=== PATIENT | female | born 1980 | race Caucasian/White ===

== ENCOUNTER 2016-08-21 19:10 | Emergency (ER) | payer OTHER ==
[2016-08-21] MEDS ORDERED: Aspirin Low Dose CHEW TAB* 81 MG PO ONE (19:42)
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
[2016-08-21 20:53] LABS: Hematocrit 35 % (35-47); Hemoglobin 11.6 g/dl (12.0-16.0); Mean Corpuscular HGB Conc 33 g/dl (31-36); Mean Corpuscular Hemoglobin 29 pg (27-31); Mean Corpuscular Volume 86 fL (80-97); Mean Platelet Volume 8 um3 (7.4-10.4); Red Cell Distribution Width 14 % (10.5-15); White Blood Count 9.3 10^3/ul (3.5-10.8)
[2016-08-21 21:08] LABS: Albumin 3.8 g/dL (3.2-5.2); BUN/Creatinine Ratio 9.3 (8-20); Calcium 8.5 mg/dL (8.6-10.3); EGFR African American 112.4 (>60); EGFR Non-African American 87.4 (>60); Globulin 2.4 g/dL (2-4); Potassium 3.3 mmol/L (3.5-5.0); Total Bilirubin 0.3 mg/dL (0.2-1.0); Total Protein 6.2 g/dL (6.4-8.9)
--- NOTE | 2016-08-21 22:04 | RAD ---
Indication: Chest pain. 2 views of the chest including dual energy PA views demonstrate no mediastinal shift. Heart is of normal size and configuration. Lung prince appear clear. No changes noted since May 08, 2014. IMPRESSION: No active cardiopulmonary disease is noted.
[2016-08-21 22:17] VITALS: BP 133/92
== END 2016-08-21 22:39 | disposition home or self-care (01) ==
LOC: ED 19:10
DX: R07.9 Chest pain, unspecified (principal); F17.210 Nicotine dependence, cigarettes, uncomplicated; F32.9 Major depressive disorder, single episode, unspecified; F41.0 Panic disorder [episodic paroxysmal anxiety]; Z88.0 Allergy status to penicillin; Z88.2 Allergy status to sulfonamides; B20 Human immunodeficiency virus [HIV] disease
CPT/HCPCS: 36415; 71020; 80053; 85025; 93005; 99282

== ENCOUNTER 2017-03-29 01:55 | Emergency (ER) | payer MEDICAID, OTHER ==
[2017-03-29] MEDS ORDERED: oxyCODONE/Acetamin 5/325 MG* TAB PO ONE (02:20)
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
[2017-03-29] MEDS ORDERED: Tetan/Diph/Pertus SYR(Tdap)* 0.5 ML SYR(BOOSTRIX) use SYR IM ONE (03:32)
[2017-03-29 03:55] VITALS: BP 104/70
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
== END 2017-03-29 03:55 | disposition home or self-care (01) ==
LOC: ED 01:55
DX: S09.90XA Unspecified injury of head, initial encounter (principal); S01.311A Laceration without foreign body of right ear, initial encounter; Y04.8XXA Assault by other bodily force, initial encounter; Y93.9 Activity, unspecified; Y92.9 Unspecified place or not applicable; Z23 Encounter for immunization; R51 Headache; B20 Human immunodeficiency virus [HIV] disease; F41.0 Panic disorder [episodic paroxysmal anxiety]; F32.9 Major depressive disorder, single episode, unspecified; Z88.0 Allergy status to penicillin; Z88.2 Allergy status to sulfonamides; F17.210 Nicotine dependence, cigarettes, uncomplicated
CPT/HCPCS: 12011; 70450; 90471; 90715; 99283; A9270-GY

== ENCOUNTER 2017-06-13 19:08 | Emergency (ER) | payer MEDICAID ==
[2017-06-13] MEDS ORDERED: Ketorolac INJ* 30 MG/ML 1 ML VIAL IV ONE (19:32)
[2017-06-13] MEDS ORDERED: Aspirin 81 mg CHEW TAB* 81 MG TAB.CHEW PO ONE (19:32)
[2017-06-13] MEDS ORDERED: Famotidine TAB* 20 MG PO ONE (19:33)
--- NOTE | 2017-06-13 20:14 | RAD ---
INDICATION: Left chest pain COMPARISON: Chest x-ray dated August 21, 2016 TECHNIQUE: PA and lateral views of the chest were obtained. FINDINGS: The heart and mediastinum are normal in size and contour. The lungs are grossly clear. There is no evidence of large pleural effusion. Visualized bones are normal for the patient's age. There is no radiographic evidence of free air beneath the diaphragm IMPRESSION: No radiographic evidence of acute cardiopulmonary disease.
[2017-06-13 20:55] LABS: ABS Basophils 0.2 10^3/ul (0-0.2); ABS Eosinophils 0.2 10^3/ul (0-0.6); ABS Lymphocytes 3.5 10^3/ul (1.0-4.8); ABS Monocytes 0.6 10^3/ul (0-0.8); ABS Nucleated RBC 0 10^3/ul; Eosinophil % 2.7 % (0-6); Hematocrit 37 % (35-47); Hemoglobin 12.8 g/dl (12.0-16.0); Lymphocyte % 41.7 % (25-47); Mean Corpuscular HGB Conc 35 g/dl (31-36); Mean Corpuscular Hemoglobin 31 pg (27-31); Mean Corpuscular Volume 89 fL (80-97); Mean Platelet Volume 7.7 um3 (7.4-10.4); Nucleated Red Blood Cells % 0; Platelet Count 255 10^3/ul (150-450); Red Blood Count 4.13 10^6/ul (4.0-5.4); Red Cell Distribution Width 14 % (10.5-15); White Blood Count 8.5 10^3/ul (3.5-10.8)
[2017-06-13 21:08] LABS: EGFR Non-African American 70.5 (>60)
[2017-06-13 22:01] VITALS: BP 94/54
--- NOTE | 2017-06-15 11:30 | ED ---
Max Vanegas Rebecca, scribed for Drew Rojas MD on 06/13/17 at 1942 . HPI Chest Pain - HPI Summary HPI Summary: Pt is a 37 y/o F who presents to ED c/o CP. Sx began a few days ago, initially described as tight, though yesterday she began having sharp, intermittent pains as well. Pain is in her left anterior chest with intermittent radiation to the left hand. Currently, pain is described as tight and on triage was moderate, ranked 7/10. Denies cough, congestion, fever, abdominal pain, and back pain. Reports a recent increase in familial stress and that she is "going through a lot." States she has had CP before, though it was not similar to current symptoms. No recent travel. FHx CAD - father - in 60's from STEMI. No PMHx GERD, HTN, DM, PE. - History of Current Complaint Chief Complaint: EDChestPainROMI Time Seen by Provider: 06/13/17 19:37 Hx Obtained From: Patient Hx Last Menstrual Period: Currently menstruating Onset/Duration: Started Days Ago, Still Present Timing: Intermittent - Sharp Current Severity: Moderate Pain Intensity: 7 Pain Scale Used: 0-10 Numeric Chest Pain Location: Left Anterior Chest Pain Radiates: Yes Chest Pain Radiates To:: Other - Intermittent L hand radiation Character: Sharp/Stabbing, Skipped Beats - Intermittent, Tightness Associated Signs and Symptoms: Positive: Negative - Allergy/Home Medications Allergies/Adverse Reactions: Allergies Allergy/AdvReac Type Severity Reaction Status Date / Time Penicillins Allergy Rash Verified 06/13/17 19:46 sulfamethoxazole Allergy Rash Verified 06/13/17 19:46 [From Bactrim] trimethoprim [From Bactrim] Allergy Rash Verified 06/13/17 19:46 Home Medications: Home Medications Dolutegravir (NF) [Tivicay (NF)] 1 tab PO QAM 06/13/17 [History Confirmed ] Emtricitabine/Tenofov Alafenam [Descovy 200-25 mg Tablet] 1 tab PO QAM 06/13/17 [History Confirmed 06/13/17] PMH/Surg Hx/FS Hx/Imm Hx Endocrine/Hematology History: Denies: Hx Blood Disorders, Hx Diabetes, Hx Thyroid Disease, Hx Anemia Cardiovascular History: Denies: Hx Congestive Heart Failure, Hx Hypertension, Other Cardiovascular Problems/Disorders Respiratory History: Reports: Other Respiratory Problems/Disorders - smokes 1/2 pack a day Denies: Hx Asthma, Hx Chronic Obstructive Pulmonary Disease (COPD) GI History: Denies: Hx Gastroesophageal Reflux Disease, Hx Jaundice, Hx Ulcer History: Denies: Hx Renal Disease Sensory History: Reports: Hx Contacts or Glasses Opthamlomology History: Reports: Hx Contacts or Glasses Psychiatric History: Reports: Hx Depression, Hx Panic Disorder - "panic attacks " - Surgical History Surgery Procedure, Year, and Place: TUBAL LIGATION. Infectious Disease History: No Infectious Disease History: Reports: Hx Human Immunodeficiency Virus (HIV) Denies: Hx Hepatitis, History Other Infectious Disease, Traveled Outside the [place] in Last 30 Days - Family History Known Family History: Positive: Cardiac Disease - Father - in 60's after STEMI, Hypertension, Diabetes - Social History Alcohol Use: None Substance Use Type: Reports: None Smoking Status (MU): Current Every Day Smoker Type: Cigarettes Amount Used/How Often: 1/2 ppd Length of Time of Smoking/Using Tobacco: 6 years Have You Smoked in the Last Year: Yes Review of Systems Negative: Fever Positive: Chest Pain Positive: Other - NEGATIVE: Congestion. Negative: Cough Negative: Abdominal Pain Positive: Other - NEGATIVE: Back pain All Other Systems Reviewed And Are Negative: Yes Physical Exam - Summary Physical Exam Summary: Appearance: No pain distress, mascara running down her face Skin: warm, dry, reflects adequate perfusion Head/face: normal Eyes: EOMI, RADHA ENT: normal Neck: supple, non-tender Respiratory: CTA, breath sounds present Cardiovascular: RRR, pulses symmetrical, tenderness in the left chest wall with palpation Abdomen: non-tender, soft Bowel Sounds: present Musculoskeletal: normal, strength/ROM intact Neuro: normal, sensory motor intact, A&Ox3 Triage Information Reviewed: Yes Vital Signs On Initial Exam: Initial Vitals Temp Pulse Resp BP Pulse Ox 98.8 F 101 20 119/77 99 06/13/17 19:14 06/13/17 19:14 06/13/17 19:14 06/13/17 19:14 06/13/17 19:14 Vital Signs Reviewed: Yes Diagnostics - Vital Signs Vital Signs Temp Pulse Resp BP Pulse Ox 06/13/17 19:14 98.8 F 101 20 119/77 99 - Laboratory Lab Results: Lab Results 06/13/17 06/13/17 06/13/17 Range/Units 20:42 20:42 20:42 WBC 8.5 (3.5-10.8) 10^3/ul RBC 4.13 (4.0-5.4) 10^6/ul Hgb 12.8 (12.0-16.0) g/dl Hct 37 (35-47) % MCV 89 (80-97) fL MCH 31 (27-31) pg MCHC 35 (31-36) g/dl RDW 14 (10.5-15) % Plt Count 255 (150-450) 10^3/ul MPV 7.7 (7.4-10.4) um3 Neut % (Auto) 47.2 (38-83) % Lymph % (Auto) 41.7 (25-47) % [place] % (Auto) 6.5 (0-7) % Eos % (Auto) 2.7 (0-6) % Baso % (Auto) 1.9 (0-2) % Absolute Neuts (auto) 4.0 (1.5-7.7) 10^3/ul Absolute Lymphs (auto) 3.5 (1.0-4.8) 10^3/ul Absolute Monos (auto) 0.6 (0-0.8) 10^3/ul Absolute Eos (auto) 0.2 (0-0.6) 10^3/ul Absolute Basos (auto) 0.2 (0-0.2) 10^3/ul Absolute Nucleated RBC 0 10^3/ul Nucleated RBC % 0 D-Dimer, Quantitative < 200 (Less Than 230) ng/mL Sodium 139 (139-145) mmol/L Potassium 3.8 (3.5-5.0) mmol/L Chloride 106 (101-111) mmol/L Carbon Dioxide 25 (22-32) mmol/L Anion Gap 8 (2-11) mmol/L BUN 13 (6-24) mg/dL Creatinine 0.90 (0.51-0.95) mg/dL Est GFR ( Amer) 90.6 (>60) Est GFR (Non-Af Amer) 70.5 (>60) BUN/Creatinine Ratio 14.4 (8-20) Glucose 93 (70-100) mg/dL Calcium 9.1 (8.6-10.3) mg/dL Total Bilirubin 0.30 (0.2-1.0) mg/dL AST 10 L (13-39) U/L ALT 8 (7-52) U/L Alkaline Phosphatase 35 (34-104) U/L Troponin I 0.00 (<0.04) ng/mL Total Protein 6.8 (6.4-8.9) g/dL Albumin 4.3 (3.2-5.2) g/dL Globulin 2.5 (2-4) g/dL Albumin/Globulin Ratio 1.7 (1-3) Beta HCG, Quant < 0.60 mIU/mL Result Diagrams: 06/13/17 20:42 06/13/17 20:42 Lab Statement: Any lab studies that have been ordered have been reviewed, and results considered in the medical decision making process. - Radiology CXR Xray Interpretation: No Acute Changes - No radiographic evidence of acute cardiopulmonary disease. ED physician reviewed this radiology report. Radiology Interpretation Completed By: Radiologist - EKG 1920 Cardiac Rate: NL - 91 bpm EKG Rhythm: Sinus Rhythm ST Segment: Normal EKG Interpretation: Normal interval, normal axis, normal ST segments Re-Evaluation - Re-Evaluation First Eval Re-Evaluation Time: 21:18 Change: Improved Comment: Pt is doing better. Chest Pain Course/Dx - Course Course Of Treatment: L sided chest discomfort, exacerbated by her emotional condition. Improved with toradol. Trop 0. EKG normal. - Chest Pain Differential Diagnosis/HQI/PQRI: Acute [place], ACS, CHF, Chest Wall, GI Disease, Lower Respiratory Infection, Other: - anxiety - Diagnoses Provider Diagnoses: Atypical chest pain, Adjustment disorder with anxiety Discharge - Sign-Out/Discharge Documenting (check all that apply): Discharge - Discharge - Discharge Plan Condition: Good Disposition: HOME Prescriptions: Famotidine TAB* [Pepcid 20 MG TAB*] 20 mg PO BID #20 tab Patient Education Materials: Chest Pain (ED), Anxiety (ED) Referrals: [facility] [place] [facility]IAN REFERRAL [Outside] Additional Instructions: Return if worse, new symptoms or other concerns as discussed. Ibuprofen as needed. The documentation as recorded by the Max whitlock Rebecca accurately reflects the service I personally performed and the decisions made by me, Bob,Drew, MD.
== END 2017-06-13 21:45 | disposition home or self-care (01) ==
LOC: ED 19:08
DX: R07.89 Other chest pain (principal); F43.22 Adjustment disorder with anxiety; F41.0 Panic disorder [episodic paroxysmal anxiety]; F32.9 Major depressive disorder, single episode, unspecified; Z88.0 Allergy status to penicillin; Z88.2 Allergy status to sulfonamides; F17.210 Nicotine dependence, cigarettes, uncomplicated
CPT/HCPCS: 36415; 71046; 80053; 84484; 84702; 85025; 85379; 93005; 96374; 99283; A9270-GY; J1885

== ENCOUNTER 2017-08-13 19:54 | Emergency (ER) | payer OTHER ==
[2017-08-13 20:09] VITALS: BP 108/69
[2017-08-13] MEDS ORDERED: Ketorolac INJ* 30 MG/ML 1 ML VIAL IM ONE (20:28)
[2017-08-13] MEDS ORDERED: Methocarbamol TAB* 500 MG PO ONE (20:29)
--- NOTE | 2017-08-13 20:43 | ED ---
GI/ HPI - HPI Summary HPI Summary: 37-year-old female presents with lower back pain and right-sided flank pain for the past 3 days. She denies any injury. She does have a history of back pain but never this intense. She denies any loss or bladder or saddle anesthesia. She denies any weakness. She denies any numbness or tingling to her legs. She admits to pain into her right leg. She also admits to dysuria. No fevers. No nausea and vomiting. No abdominal pain. She's tried aspirin and ibuprofen without relief. No medical conditions. - History of Current Complaint Hx Last Menstrual Period: 07/31/17 Pain Intensity: 10 <Kalani Bernstein - Last Filed: 08/13/17 21:40> <Dillon Hatfield - Last Filed: 08/13/17 21:51> - History of Current Complaint Chief Complaint: UCBackPain Time Seen by Provider: 08/13/17 20:22 Stated Complaint: BACK PAIN - Allergy/Home Medications Allergies/Adverse Reactions: Allergies Allergy/AdvReac Type Severity Reaction Status Date / Time Penicillins Allergy Rash Verified 08/13/17 20:09 sulfamethoxazole Allergy Rash Verified 08/13/17 20:09 [From Bactrim] trimethoprim [From Bactrim] Allergy Rash Verified 08/13/17 20:09 PMH/Surg Hx/FS Hx/Imm Hx Endocrine/Hematology History: Denies: Hx Blood Disorders, Hx Diabetes, Hx Thyroid Disease, Hx Anemia Cardiovascular History: Denies: Hx Congestive Heart Failure, Hx Hypertension, Other Cardiovascular Problems/Disorders Respiratory History: Reports: Other Respiratory Problems/Disorders - smokes 1/2 pack a day Denies: Hx Asthma, Hx Chronic Obstructive Pulmonary Disease (COPD) GI History: Denies: Hx Gastroesophageal Reflux Disease, Hx Jaundice, Hx Ulcer History: Denies: Hx Renal Disease Sensory History: Reports: Hx Contacts or Glasses Opthamlomology History: Reports: Hx Contacts or Glasses Psychiatric History: Reports: Hx Depression, Hx Panic Disorder - "panic attacks " - Surgical History Surgery Procedure, Year, and Place: TUBAL LIGATION. - Immunization History Date of Tetanus Vaccine: utd Date of Influenza Vaccine: utd Infectious Disease History: No Infectious Disease History: Reports: Hx Human Immunodeficiency Virus (HIV) Denies: Hx Hepatitis, History Other Infectious Disease, Traveled Outside the [place] in Last 30 Days - Family History Known Family History: Positive: None, Cardiac Disease - Father - in 60' s after STEMI, Hypertension, Diabetes - Social History Alcohol Use: None Substance Use Type: Reports: None Smoking Status (MU): Light Every Day Tobacco Smoker Type: Cigarettes Amount Used/How Often: 1/2 ppd Length of Time of Smoking/Using Tobacco: 6 years Have You Smoked in the Last Year: Yes <Kalani Bernstein - Last Filed: 08/13/17 21:40> Review of Systems Negative: Fever Negative: Chest Pain Negative: Shortness Of Breath Negative: Abdominal Pain Positive: dysuria, flank pain Positive: Myalgia - lower back pain All Other Systems Reviewed And Are Negative: Yes <Kalani Bernstein - Last Filed: 08/13/17 21:40> Physical Exam Triage Information Reviewed: Yes Vital Signs On Initial Exam: Initial Vitals Temp Pulse Resp BP Pulse Ox 97.9 F 118 22 108/69 98 08/13/17 20:00 08/13/17 20:00 08/13/17 20:00 08/13/17 20:00 08/13/17 20:00 Vital Signs Reviewed: Yes Appearance: Positive: Pain Distress Skin: Positive: Warm, Dry Head/Face: Positive: Normal Head/Face Inspection Eyes: Positive: Normal, Conjunctiva Clear Respiratory/Lung Sounds: Positive: Clear to Auscultation, Breath Sounds Present Cardiovascular: Positive: Normal, RRR Abdomen Description: Positive: Nontender, Soft, CVA Tenderness (R). Negative: CVA Tenderness (L) Bowel Sounds: Positive: Present Musculoskeletal: Positive: Limited @ - back, Other - tenderness lower back, neg SLR, good pulses, good strenght lower extremities, sensation grossly intact Neurological: Positive: Normal, Reflexes Intact - patella, Normal Gait Psychiatric: Positive: Normal <Kalani Bernstein - Last Filed: 08/13/17 21:40> Vital Signs On Initial Exam: Initial Vitals Temp Pulse Resp BP Pulse Ox 97.9 F 118 22 108/69 98 08/13/17 20:00 08/13/17 20:00 08/13/17 20:00 08/13/17 20:00 08/13/17 20:00 <Dillon Hatfield - Last Filed: 08/13/17 21:51> Diagnostics - Vital Signs Vital Signs Temp Pulse Resp BP Pulse Ox 08/13/17 20:00 97.9 F 118 22 108/69 98 - CT abd CT Interpretation: Positive (See Comments) - perinephritic straining CT Interpretation Completed By: Radiologist <Kalani Bernstein - Last Filed: 08/13/17 21:40> - Vital Signs Vital Signs Temp Pulse Resp BP Pulse Ox 08/13/17 20:00 97.9 F 118 22 108/69 98 - Laboratory Lab Results: Lab Results 08/13/17 08/13/17 Range/Units 20:41 20:46 POC Urine Color Yellow POC Urine Clarity Clear POC Urine pH 6.0 (5-9) POC Ur Specif [place] 1.010 (1.010-1.030) POC Urine Protein 1+ A (Negative) POC Ur Glucose (UA) Negative (Negative) POC Urine Ketones Negative (Negative) POC Urine Blood Negative (Negative) POC Urine Nitrite Positive A (Negative) POC Urine Bilirubin Negative (Negative) POC Urine Urobilinogen 2.0 A (Negative) POC U Leukocyte Esteras 1+ A (Negative) POC Ur Test Negative (Negative) Lab Statement: Any lab studies that have been ordered have been reviewed, and results considered in the medical decision making process. <Dillon Hatfield - Last Filed: 08/13/17 21:51> GIGU Course/Dx - Course Course Of Treatment: 37-year-old female presents with lower back pain and right- sided flank pain for the past 3 days. She denies any injury. She does have a history of back pain but never this intense. She denies any loss or bladder or saddle anesthesia. She denies any weakness. She denies any numbness or tingling to her legs. She admits to pain into her right leg. She also admits to dysuria. No fevers. No nausea and vomiting. No abdominal pain. She's tried aspirin and ibuprofen without relief. No medical conditions. On exam tenderness. Flank and lower back. Negative straight leg raise. Neurovascularly intact. urine shows uti. will treat with cipro. CT shows perinephritic strainging so will treat for pyelo with cipro for 14 days. gave norco for pain. will have continue ibuprofen. told if develops fever to do to ED. patient understand and agrees with plan. - Diagnoses Differential Diagnoses - Female: Pyelonephritis, Urinary Tract Infection, Ureteral Calculi, Other - back pain <Kalani Bernstein - Last Filed: 08/13/17 21:40> <Dillon Hatfield - Last Filed: 08/13/17 21:51> - Diagnoses Provider Diagnoses: Pyelonephritis Discharge - Sign-Out/Discharge Documenting (check all that apply): Discharge/Admit/Transfer - Billing Disposition and Condition Condition: GOOD Disposition: Home <Kalani Bernstein - Last Filed: 08/13/17 21:40> - Billing Disposition and Condition Condition: GOOD Disposition: Home <Dillon Hatfield - Last Filed: 08/13/17 21:51> - Discharge Plan Condition: Good Disposition: HOME Prescriptions: Ciprofloxacin TAB* [Cipro 500 MG TAB*] 500 mg PO BID #27 tab HYDROcodone/ACETAMIN 5-325 MG* [Amorita 5-325 TAB*] 1 tab PO Q6H PRN #16 tab MDD 4 PRN Reason: Pain Patient Education Materials: Kidney Infection (ED), Back Pain (ED) Referrals: Tushar Goodwin MD [Primary Care Provider] - Additional Instructions: Take antibiotic twice a day for 14 days Drink plenty of water Take Tylenol or ibuprofen every 6 hours as needed for pain and fever, use narcotic for break through pain Follow up with primary within 7 days Return to ED if develop severe vomiting, or any new or worsening symptoms Per institutional requirements, I have reviewed the chart, however, I was not consulted specifically or made aware of this patient by the above midlevel provider. I did not personally evaluate, interact with , or disposition this patient.
--- NOTE | 2017-08-13 21:15 | RAD ---
INDICATION: Right flank and lower back pain. COMPARISON: Comparison is made with a prior CT of the abdomen and pelvis from October 30, 2013. TECHNIQUE: A CT scan of the abdomen and pelvis was performed without intravenous and without oral contrast. Contiguous axial sections were obtained from the lung bases through the symphysis pubis. Images were reconstructed in the coronal and sagittal planes. FINDINGS: The lung bases are clear. No pleural effusion is present. The liver is mildly enlarged and decreased in attenuation most consistent with fatty infiltration. In addition there is a more focal area of decreased attenuation present in the anterior aspect of the left hepatic lobe most consistent with more focal fatty infiltration. The gallbladder is contracted. No calcified gallstones are seen. The spleen and pancreas appear to be within normal limits. The adrenal glands appear within normal limits. The right kidney is mildly enlarged. There is interstitial stranding around the right kidney. No renal calculi are seen. No hydronephrosis is appreciated. No ureteral or bladder calculi are seen. There are calcifications in the pelvis limiting the exam slightly although likely representing phleboliths. There is diffuse thickening of the urinary bladder wall likely due to incomplete distention. The aorta is normal in caliber with mild calcific plaque present. No significant enlarged retroperitoneal lymph nodes are seen. There appears to be food debris within the stomach. The stomach, small and large bowel appear nondistended. The appendix is within normal limits. There is mild descending and sigmoid diverticulosis without evidence for diverticulitis. There is a small periumbilical hernia containing fat. The uterus is anteverted and normal in size. There is a 2.0 cm right ovarian cyst. No free intraperitoneal air or fluid is seen. No significant focal osseous abnormality is seen. IMPRESSION: 1. RIGHT PERINEPHRIC STRANDING. THIS IS A NONSPECIFIC FINDING ALTHOUGH SUGGESTIVE OF PYELONEPHRITIS OR RECENT PASSAGE OF A CALCULUS. RECOMMEND CLINICAL CORRELATION AND FOLLOW-UP. 2. HEPATOMEGALY AND HEPATIC STEATOSIS.
[2017-08-13] MEDS ORDERED: Ciprofloxacin TAB* 500 MG PO ONE (21:20)
[2017-08-13] MEDS ORDERED: HYDROcodone/ACETAMIN 5-325 MG* 1 TAB PO ONE (21:20)
== END 2017-08-13 21:35 | disposition home or self-care (01) ==
LOC: UCEAST 19:54
DX: N12 Tubulo-interstitial nephritis, not specified as acute or chronic (principal); Z88.0 Allergy status to penicillin; Z88.2 Allergy status to sulfonamides; F17.210 Nicotine dependence, cigarettes, uncomplicated
CPT/HCPCS: 74176; 81003; 84702; 87077; 87086; 87186; 96372; 99212; A9270-GY; G0463; J1885

== ENCOUNTER 2017-09-29 16:19 | Observation (INO) | payer OTHER ==
[2017-09-29 17:01] LABS: ABS Basophils 0.1 10^3/ul (0-0.2); ABS Eosinophils 0.2 10^3/ul (0-0.6); ABS Lymphocytes 2.2 10^3/ul (1.0-4.8); ABS Monocytes 0.6 10^3/ul (0-0.8); ABS Neutrophils 4.3 10^3/ul (1.5-7.7); ABS Nucleated RBC 0 10^3/ul; Eosinophil % 2.7 % (0-6); Hematocrit 37 % (35-47); Hemoglobin 12.6 g/dl (12.0-16.0); Lymphocyte % 30.1 % (25-47); Mean Corpuscular HGB Conc 35 g/dl (31-36); Mean Corpuscular Hemoglobin 30 pg (27-31); Mean Corpuscular Volume 88 fL (80-97); Mean Platelet Volume 7.5 um3 (7.4-10.4); Nucleated Red Blood Cells % 0.1; Platelet Count 243 10^3/ul (150-450); Red Blood Count 4.16 10^6/ul (4.00-5.40); Red Cell Distribution Width 15 % (10.5-15); White Blood Count 7.4 10^3/ul (3.5-10.8)
[2017-09-29 17:22] LABS: EGFR Non-African American 83.1 (>60)
--- NOTE | 2017-09-29 17:23 | RAD ---
INDICATION: Chest pain COMPARISON: Most recent comparison chest x-rays dated June 13, 2017 TECHNIQUE: Single AP portable view of the chest was obtained. FINDINGS: Image quality is compromised due to the relative inferiority of a portable chest x-ray. The heart and mediastinum exhibit normal size and contour. The lungs are grossly clear. There is no evidence of a large pleural effusion. Visualized bones are normal for the patient's age. IMPRESSION: No radiographic evidence for acute cardiopulmonary abnormality on this portable chest x-ray.
--- NOTE | 2017-09-29 17:53 | ED ---
HPI Chest Pain - HPI Summary HPI Summary: Patient complains of waking up this morning with abdominal diffuse chest pressure, with intermittent sharp stabbing pains across left-sided chest. States she has to breathe rapidly when she gets this short stabbing spikes across left chest, also states increasing exertional SOB for the past 2 weeks. States active C at 6/10 diffuse chest pressure. No radiation of chest pain. States history of diagnosis of unstable angina with no follow-up. Also complains of mild sore throat, stuffy nose 2 days. No history of stress test, denies OCPs, estrogen supplements, recent surgery or trauma, , history of cancer, history of blood clots, history of immobility. Medical history is HIV. Denies DM, HDL, HTN. Positive family cardiac history: Dad had CO in his 30s. Smoker for 11 years, quit 2 months ago. Denies illegal drug use. No primary care. - History of Current Complaint Chief Complaint: EDChestPainROMI Time Seen by Provider: 09/29/17 16:27 Hx Obtained From: Patient Hx Last Menstrual Period: 07/31/17 Onset/Duration: Started Hours Ago Timing: Constant Initial Severity: Moderate Current Severity: Moderate Pain Intensity: 7 Pain Scale Used: 0-10 Numeric Chest Pain Location: Diffuse, Left Anterior Character: Dull/Aching, Dyspnea at Exertion, Pressure/Squeezing, Sharp/Stabbing Aggravating Factor(s): Exertion Associated Signs and Symptoms: Positive: Chest Pain, Shortness of Breath - Risk Factors Pulmonary Embolism Risk Factors: Smoking AMI/ACS Risk Factors: Family History, Smoking - Allergy/Home Medications Allergies/Adverse Reactions: Allergies Allergy/AdvReac Type Severity Reaction Status Date / Time Penicillins Allergy Rash Verified 09/29/17 16:25 sulfamethoxazole Allergy Rash Verified 09/29/17 16:25 [From Bactrim] trimethoprim [From Bactrim] Allergy Rash Verified 09/29/17 16:25 Home Medications: Home Medications Dolutegravir (NF) [Tivicay (NF)] 50 mg PO QAM 09/29/17 [History Confirmed ] Emtricitabine/Tenofov Alafenam [Descovy 200-25 mg] 1 tab PO QAM 09/29/17 [ History Confirmed 09/29/17] Ibuprofen TAB* [Advil TAB*] 200 - 400 mg PO Q6H PRN 09/29/17 [History Confirmed 09/29/17] Melatonin 5 mg PO BEDTIME 09/29/17 [History Confirmed 09/29/17] Nicotine Polacrilex [Nicotine Gum] 4 mg PO Q2HR PRN 09/29/17 [History Confirmed 09/29/17] Venlafaxine ER (NF) [Effexor ER (NF)] 150 mg PO DAILY 09/29/17 [History Confirmed 09/29/17] Venlafaxine EXT RELEASE CAP* [Effexor Xr CAP*] 37.5 mg PO DAILY 09/29/17 [ History Confirmed 09/29/17] diPHENhydraMINE PO* [Benadryl PO 25 MG TAB*] 25 - 50 mg PO Q6HR 09/29/17 [ History Confirmed 09/29/17] traZODone TAB* [Desyrel TAB*] 100 mg PO BEDTIME 09/29/17 [History Confirmed ] PMH/Surg Hx/FS Hx/Imm Hx Endocrine/Hematology History: Denies: Hx Blood Disorders, Hx Diabetes, Hx Thyroid Disease, Hx Anemia Cardiovascular History: Denies: Hx Congestive Heart Failure, Hx Hypertension, Other Cardiovascular Problems/Disorders Respiratory History: Reports: Other Respiratory Problems/Disorders - smokes 1/2 pack a day Denies: Hx Asthma, Hx Chronic Obstructive Pulmonary Disease (COPD) GI History: Denies: Hx Gastroesophageal Reflux Disease, Hx Jaundice, Hx Ulcer History: Denies: Hx Renal Disease Sensory History: Reports: Hx Contacts or Glasses Opthamlomology History: Reports: Hx Contacts or Glasses Psychiatric History: Reports: Hx Depression, Hx Panic Disorder - "panic attacks " - Surgical History Surgery Procedure, Year, and Place: TUBAL LIGATION. - Immunization History Date of Tetanus Vaccine: utd Date of Influenza Vaccine: utd Infectious Disease History: Yes Infectious Disease History: Reports: Hx Human Immunodeficiency Virus (HIV) Denies: Hx Hepatitis, History Other Infectious Disease, Traveled Outside the [place] in Last 30 Days - Family History Known Family History: Positive: None, Cardiac Disease - Father - in 60' s after STEMI, Hypertension, Diabetes - Social History Alcohol Use: None Substance Use Type: Reports: None Smoking Status (MU): Former Smoker Type: Cigarettes Amount Used/How Often: 1/2 ppd Length of Time of Smoking/Using Tobacco: 6 years Have You Smoked in the Last Year: Yes Review of Systems Constitutional: Negative Eyes: Negative Positive: Sore Throat, Nasal Discharge Positive: Chest Pain Positive: Shortness Of Breath Gastrointestinal: Negative Genitourinary: Negative Musculoskeletal: Negative Skin: Negative Neurological: Negative Psychological: Normal All Other Systems Reviewed And Are Negative: Yes Physical Exam - Summary Physical Exam Summary: Chest nontender to palpation. No pedal edema. No unilateral redness or swelling, tenderness in lower extremity. Triage Information Reviewed: Yes Vital Signs On Initial Exam: Initial Vitals Temp Pulse Resp BP Pulse Ox 98.9 F 85 20 96/73 98 09/29/17 16:20 09/29/17 16:20 09/29/17 16:20 09/29/17 16:20 09/29/17 16:20 Vital Signs Reviewed: Yes Appearance: Positive: Well-Appearing Skin: Positive: Warm Head/Face: Positive: Normal Head/Face Inspection Eyes: Positive: Normal Neck: Positive: Supple Respiratory/Lung Sounds: Positive: Clear to Auscultation Cardiovascular: Positive: Normal Abdomen Description: Positive: Nontender Musculoskeletal: Positive: Normal Neurological: Positive: Normal Psychiatric: Positive: Normal AVPU Assessment: Alert - Roselia Coma Scale Best Eye Response: 4 - Spontaneous Best Motor Response: 6 - Obeys Commands Best Verbal Response: 5 - Oriented Coma Scale Total: 15 Diagnostics - Vital Signs Vital Signs Temp Pulse Resp BP Pulse Ox 09/29/17 16:20 98.9 F 85 20 96/73 98 - Laboratory Lab Results: Lab Results 09/29/17 09/29/17 09/29/17 Range/Units 16:48 16:48 16:48 WBC 7.4 (3.5-10.8) 10^3/ul RBC 4.16 (4.00-5.40) 10^6/ul Hgb 12.6 (12.0-16.0) g/dl Hct 37 (35-47) % MCV 88 (80-97) fL MCH 30 (27-31) pg MCHC 35 (31-36) g/dl RDW 15 (10.5-15) % Plt Count 243 (150-450) 10^3/ul MPV 7.5 (7.4-10.4) um3 Neut % (Auto) 57.4 (38-83) % Lymph % (Auto) 30.1 (25-47) % [place] % (Auto) 8.1 H (0-7) % Eos % (Auto) 2.7 (0-6) % Baso % (Auto) 1.7 (0-2) % Absolute Neuts (auto) 4.3 (1.5-7.7) 10^3/ul Absolute Lymphs (auto) 2.2 (1.0-4.8) 10^3/ul Absolute Monos (auto) 0.6 (0-0.8) 10^3/ul Absolute Eos (auto) 0.2 (0-0.6) 10^3/ul Absolute Basos (auto) 0.1 (0-0.2) 10^3/ul Absolute Nucleated RBC 0 10^3/ul Nucleated RBC % 0.1 Sodium 137 (135-145) mmol/L Potassium 4.0 (3.5-5.0) mmol/L Chloride 102 (101-111) mmol/L Carbon Dioxide 29 (22-32) mmol/L Anion Gap 6 (2-11) mmol/L BUN 11 (6-24) mg/dL Creatinine 0.78 (0.51-0.95) mg/dL Est GFR ( Amer) 100.6 (>60) Est GFR (Non-Af Amer) 83.1 (>60) BUN/Creatinine Ratio 14.1 (8-20) Glucose 95 (70-100) mg/dL Lactic Acid 0.8 (0.5-2.0) mmol/L Calcium 9.3 (8.6-10.3) mg/dL Total Bilirubin 0.30 (0.2-1.0) mg/dL AST 14 (13-39) U/L ALT 12 (7-52) U/L Alkaline Phosphatase 37 (34-104) U/L Troponin I 0.00 (<0.04) ng/mL B-Natriuretic Peptide ( - 100) pg/mL Total Protein 6.7 (6.4-8.9) g/dL Albumin 4.1 (3.2-5.2) g/dL Globulin 2.6 (2-4) g/dL Albumin/Globulin Ratio 1.6 (1-3) TSH (0.34-5.60) mcIU/mL 07/31/18 07/31/18 Range/Units 16:48 16:48 WBC (3.5-10.8) 10^3/ul RBC (4.00-5.40) 10^6/ul Hgb (12.0-16.0) g/dl Hct (35-47) % MCV (80-97) fL MCH (27-31) pg MCHC (31-36) g/dl RDW (10.5-15) % Plt Count (150-450) 10^3/ul MPV (7.4-10.4) um3 Neut % (Auto) (38-83) % Lymph % (Auto) (25-47) % [place] % (Auto) (0-7) % Eos % (Auto) (0-6) % Baso % (Auto) (0-2) % Absolute Neuts (auto) (1.5-7.7) 10^3/ul Absolute Lymphs (auto) (1.0-4.8) 10^3/ul Absolute Monos (auto) (0-0.8) 10^3/ul Absolute Eos (auto) (0-0.6) 10^3/ul Absolute Basos (auto) (0-0.2) 10^3/ul Absolute Nucleated RBC 10^3/ul Nucleated RBC % Sodium (135-145) mmol/L Potassium (3.5-5.0) mmol/L Chloride (101-111) mmol/L Carbon Dioxide (22-32) mmol/L Anion Gap (2-11) mmol/L BUN (6-24) mg/dL Creatinine (0.51-0.95) mg/dL Est GFR ( Amer) (>60) Est GFR (Non-Af Amer) (>60) BUN/Creatinine Ratio (8-20) Glucose (70-100) mg/dL Lactic Acid (0.5-2.0) mmol/L Calcium (8.6-10.3) mg/dL Total Bilirubin (0.2-1.0) mg/dL AST (13-39) U/L ALT (7-52) U/L Alkaline Phosphatase (34-104) U/L Troponin I (<0.04) ng/mL B-Natriuretic Peptide 9 ( - 100) pg/mL Total Protein (6.4-8.9) g/dL Albumin (3.2-5.2) g/dL Globulin (2-4) g/dL Albumin/Globulin Ratio (1-3) TSH 1.52 (0.34-5.60) mcIU/mL Result Diagrams: 09/29/17 16:48 09/29/17 16:48 Lab Statement: Any lab studies that have been ordered have been reviewed, and results considered in the medical decision making process. - Radiology cxr Xray Interpretation: No Acute Changes Radiology Interpretation Completed By: Radiologist - EKG 1 Cardiac Rate: NL EKG Rhythm: Sinus Rhythm ST Segment: Normal Ectopy: None Chest Pain Course/Dx - Course Course Of Treatment: Patient complains of waking up this morning with abdominal diffuse chest pressure, with intermittent sharp stabbing pains across left- sided chest. States she has to breathe rapidly when she gets this short stabbing spikes across left chest, also states increasing exertional SOB for the past 2 weeks. States active C at 6/10 diffuse chest pressure. No radiation of chest pain. States history of diagnosis of unstable angina with no follow- up. Also complains of mild sore throat, stuffy nose 2 days. No history of stress test, denies OCPs, estrogen supplements, recent surgery or trauma, , history of cancer, history of blood clots, history of immobility. Medical history is HIV. Denies DM, HDL, HTN. Positive family cardiac history: Dad had CO in his 30s. Smoker for 11 years, quit 2 months ago. Denies illegal drug use. No primary care. Chest nontender to palpation. No pedal edema. No unilateral redness or swelling, tenderness in lower extremity. Vital signs within normal limits. Labs unremarkable. Patient has no follow-up, no PCP. History of noncompliance with follow-up instructions. History of angina. Admit for OBS. - Diagnoses Provider Diagnoses: Chest pain Discharge - Sign-Out/Discharge Documenting (check all that apply): Patient Departure - Discharge Plan Condition: Stable Disposition: ADMITTED TO [facility] - Billing Disposition and Condition Condition: STABLE Disposition: Admitted to [facility]
[2017-09-29] MEDS ORDERED: Aspirin TAB* 325 MG PO ONE (17:57)
[2017-09-29] MEDS ORDERED: Nitroglycerin TAB 0.4 MG* 0.4 MG TAB SL ONE (17:57)
[2017-09-29 19:49] LABS: Urine Appearance Clear; Urine Blood Negative (Negative); Urine Color Straw; Urine Ketones Negative (Negative); Urine Protein Negative (Negative); Urine Specific Gravity 1.009 (1.010-1.030); Urine Urobilinogen Negative (Negative)
[2017-09-29] MEDS ORDERED: Albuterol 2.5 MG/3 ML NEB.SOL* (0.083%) INH PRN (22:51)
[2017-09-29] MEDS ORDERED: Al Hydrox/Mg Hydrox/Simet LIQ* 30 ML UDC PO PRN (22:51)
[2017-09-29] MEDS ORDERED: Magnesium Hydroxide LIQ* 30 ML UDC PO PRN (22:51)
[2017-09-29] MEDS ORDERED: Ondansetron INJ* 2 MG/ML VIAL IV PRN (22:51)
[2017-09-29] MEDS ORDERED: Nitroglycerin TAB 0.4 MG* 0.4 MG TAB SL PRN (22:55)
[2017-09-29] MEDS ORDERED: Nicotine GUM* 2 MG PO PRN (22:56)
[2017-09-29] MEDS ORDERED: Ibuprofen TAB* 200 MG PO PRN (22:56)
[2017-09-29] MEDS ORDERED: NS 0.9% 1000 ML* 1,000 ML IV SCH (23:00)
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
--- NOTE | 2017-09-30 00:38 | HP ---
ADMISSION HISTORY AND PHYSICAL: ADDENDUM DATE OF ADMISSION: 09/29/17 ALLERGIES: Her allergies include PENICILLIN, SULFAMETHOXAZOLE, and BACTRIM. FAMILY HISTORY: Reviewed and noncontributory. SOCIAL HISTORY: The patient is . She has 4 kids. She used to smoke tobacco, quit it 2 months ago. She does not drink alcohol. 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 She denies alcohol intake or illicit drug use. REVIEW OF SYSTEMS: See HPI. Otherwise, 14 point review of systems were examined and were essentially negative. PHYSICAL EXAMINATION GENERAL: She is a healthy-appearing young female, in no acute distress or discomfort at the time of admission. VITAL SIGNS: Revealed temperature of 98.9, heart rate of 95, blood pressure of 109/87, respiration of 24, with O2 sat of 98% on room air. HEENT: Head is normocephalic, atraumatic. Sclerae anicteric. PERRLA. EOMs intact. Oropharynx is pink and moist. NECK: Supple. Trachea midline. No cervical adenopathy, thyromegaly, or JVD. LUNGS: Clear to auscultation bilaterally. HEART: Regular rate and rhythm. Normal S1 and S2 without rubs, murmurs, or gallops. BACK: With normal curvature. No CVA tenderness. BREAST: Exam deferred at this time. ABDOMEN: Soft, nontender, and nondistended. No hernias, masses, or hepatosplenomegaly. EXTREMITIES: Without cyanosis, clubbing, or edema. NEUROLOGIC: Grossly intact. She is awake, alert, and oriented x3. RECTAL: Exam deferred at this time. LABORATORY DATA: CBC with white count of 7000, hemoglobin 12.6, hematocrit 37 , and platelets of 243. D-dimer was less than 200. Chemistry panel within normal limits. Sodium 137, potassium 4.0, chloride 102, CO2 of 29, BUN of 11 and creatinine of 0.78. Glucose of 95. Lactic acid is 0.8. LFTs within normal limits. Troponin was 0 at 3 consecutive draws. ACCESSORY DIAGNOSTIC DATA: EKG showed sinus rhythm, with no significant ST changes. Chest x-ray with no acute cardiopulmonary disease. IMPRESSION AND PLAN: A 37-year-old female with past medical history significant for human immunodeficiency virus infection back in 2007 for which she is still on antiviral medication with unknown last CD4 count, who presents to the emergency room with 1-day history of chest pressure that has been on and off today and will be admitted to telemetry for observation and to rule out acute coronary syndrome. 1. Chest pain. Again, the patient will be admitted to the telemetry unit for observation overnight. She has negative troponin in 3 consecutive draws and her EKGs have been normal. Her chest pain initially responded to nitroglycerin in the emergency room. However, she continues to still have intermittent chest pressure. I anticipate there is some anxiety factor that contribute to her chest discomfort; however, she tells me that her father in his 60s from prior heart attack. She is afraid that she might have heart problems as well. We will repeat her EKG in the morning and will obtain a stress test in the morning and hopefully discharged to home if stable and to follow up with her primary care physician, possibly a net application architect if applicable and we will set her up with appointment. At this time, she does not have a family provider and she will be a good candidate for [facility] for followup. 2. Anxiety disorder. We will maintain her on her Effexor. 3. History of human immunodeficiency virus infection. We will maintain her on her anti-viral medication regimen and she appears to be stable at this time with no evidence of any relapses or active infection. 4. DVT prophylaxis. She is at low risk and will use early ambulation. 5. Code status. She is a full code and she listed her mom, Jelly, as the healthcare proxy carrier. TIME SPENT: Approximately 60 minutes was spent admitting this patient with greater than 50% on taking history and performing physical exam. I went on discussed the case with Dr. Montoya, who agreed to plan of care and we will follow up accordingly. BRENNAN WOOD [id number]/[facility] #: [id number] EVAN
[2017-09-30] MEDS: traZODone TAB* 100 MG PO SCH ×2 (01:07→22:10)
[2017-09-30] MEDS: diPHENhydraMINE PO* 25 MG PO PRN ×2 (01:07→22:10)
[2017-09-30] MEDS: Morphine INJ* 2 MG/ML 1 ML SYRINGE (TWO MG - NEW SYRINGE VERSION) IV PRN ×2 (01:12→06:21)
[2017-09-30 06:58] LABS: ABS Basophils 0.1 10^3/ul (0-0.2); ABS Eosinophils 0.3 10^3/ul (0-0.6); ABS Lymphocytes 2.2 10^3/ul (1.0-4.8); ABS Monocytes 0.5 10^3/ul (0-0.8); ABS Neutrophils 2.8 10^3/ul (1.5-7.7); ABS Nucleated RBC 0 10^3/ul; Eosinophil % 4.4 % (0-6); Hematocrit 36 % (35-47); Hemoglobin 12.4 g/dl (12.0-16.0); Lymphocyte % 37.9 % (25-47); Mean Corpuscular HGB Conc 35 g/dl (31-36); Mean Corpuscular Hemoglobin 31 pg (27-31); Mean Corpuscular Volume 88 fL (80-97); Mean Platelet Volume 7.5 um3 (7.4-10.4); Nucleated Red Blood Cells % 0.1; Platelet Count 214 10^3/ul (150-450); Red Blood Count 4.05 10^6/ul (4.00-5.40); Red Cell Distribution Width 15 % (10.5-15); White Blood Count 5.9 10^3/ul (3.5-10.8)
[2017-09-30] MEDS ORDERED: EMTRICITABINE PO SCH (09:00)
[2017-09-30] MEDS ORDERED: Dolutegravir (NF) 50 MG TAB PO SCH (09:00)
[2017-09-30] MEDS ORDERED: TENOFOVIR PO SCH (09:00)
[2017-09-30] MEDS ORDERED: Ibuprofen TAB* 400 MG PO PRN (10:39)
[2017-09-30] MEDS ORDERED: Aminophylline IV* 25 MG/ML 10 ML VIAL ONE (12:31)
[2017-09-30] MEDS ORDERED: Regadenoson* 0.4 MG/5 ML SYRINGE ONE (12:31)
--- NOTE | 2017-09-30 14:45 | RAD ---
Edited for charges. INDICATION: Chest pain in a woman with a positive family history for heart disease COMPARISON: Chest x-ray dated September 29, 2017 TECHNIQUE: SPECT imaging was performed. Rest images were acquired following the intravenous injection of 10.67 millicuries of technetium 99m tetrofosmin at 0635 hours. At 1328 hours stress images were acquired following the intravenous administration of 25.7 millicuries of technetium 99m tetrofosmin. The patient received intravenous Lexiscan prior to the stress image acquisition. FINDINGS: At the anterior septal portion of the heart towards the apex there is questionable decreased uptake of radiotracer on the stress images as seen on series 1007. The cardiac chamber size is normal. There are no wall motion abnormalities. The ejection fraction is calculated at 66% during stress. IMPRESSION: There is a small to moderate reduction in uptake at the anterior- septal myocardium towards the apex. ASSESSMENT: Intermediate risk Based on imaging criteria from ACC/AHA 2002 Guideline Update for the Management of Patients With Chronic Stable Angina Table 23. Noninvasive Risk Stratification. MTDD
[2017-09-30] MEDS: Venlafaxine EXT RELEASE CAP* 75 MG PO SCH (15:14)
[2017-09-30] MEDS: Acetaminophen TAB* 325 MG PO PRN ×2 (15:17→22:09)
--- NOTE | 2017-09-30 17:15 | PN ---
Subjective Date of Service: 09/30/17 Interval History: Pt states she is doing ok currently. SHe has a headache. She typically drinks coffee daily. She states she continues to have low level chest pressure. She states she had been having her usual episodes of chest pain (electric like shooting pain) but yesterday felt as if her chest was being smooshed. Objective Active Medications: Acetaminophen (Tylenol Tab*) 650 mg PO Q4H PRN PRN Reason: FEVER/PAIN Last Admin: 09/30/17 15:17 Dose: 650 mg Al Hydrox/Mg Hydrox/Simethicone (Maalox Plus*) 30 ml PO Q6H PRN PRN Reason: INDIGESTION Albuterol (Ventolin 2.5 Mg/3 Ml Neb.Trish*) 2.5 mg INH [id number] AWAKE PRN PRN Reason: sob/wheezing Diphenhydramine HCl (Benadryl Po*) 25 mg PO Q6H PRN PRN Reason: .CONGESTION Last Admin: 09/30/17 01:07 Dose: 25 mg Dolutegravir Sodium (Tivicay (Nf)) 50 mg PO [facility] Last Admin: 09/30/17 15:08 Dose: Not Given Emtricitabine/Tenofovir (Descovy (Nf)) 1 tab PO [facility] Last Admin: 09/30/17 15:08 Dose: Not Given Ibuprofen (Motrin Tab*) 400 mg PO Q6H PRN PRN Reason: PAIN/INFLAMMATION Magnesium Hydroxide (Milk Of Magnesia Liq*) 30 ml PO Q4H PRN PRN Reason: CONSTIPATION Morphine Sulfate (Morphine Inj ((Syringe))*) 2 mg IV Q4H PRN PRN Reason: PAIN - MILD Last Admin: 09/30/17 06:21 Dose: 2 mg Nicotine Polacrilex (Nicotine Gum*) 4 mg PO Q2H PRN PRN Reason: CRAVINGS Nitroglycerin (Nitroglycerin Tab 0.4 Mg*) 0.4 mg SL Q5M PRN PRN Reason: ANGINA Ondansetron HCl (Zofran Inj*) 4 mg IV Q4H PRN PRN Reason: NAUSEA/VOMITING Trazodone HCl (Desyrel Tab*) 100 mg PO BEDTIME ON LICENSE OF [facility] Last Admin: 09/30/17 01:07 Dose: 100 mg Venlafaxine HCl (Effexor Xr Cap*) 150 mg PO DAILY [facility] Last Admin: 09/30/17 15:14 Dose: 150 mg Vital Signs - 8 hr 09/30/17 09/30/17 09/30/17 11:33 11:53 15:21 Temperature 97.8 F 97.9 F Pulse Rate 66 67 Respiratory 16 16 Rate Blood Pressure 80/51 102/70 97/59 (mmHg) O2 Sat by Pulse 98 99 Oximetry Oxygen Devices in Use Now: None Appearance: Young female lying in bed, NAD Eyes: No Scleral Icterus Ears/Nose/Mouth/Throat: Mucous Membranes Moist Respiratory: Symmetrical Chest Expansion and Respiratory Effort, Clear to Auscultation Cardiovascular: NL Sounds; No Murmurs; No JVD, RRR, No Edema Abdominal: NL Sounds; No Tenderness; No Distention Extremities: No Clubbing, Cyanosis Skin: No Nodules or Sclerosis Neurological: Alert and Oriented x 3 Result Diagrams: 09/30/17 06:21 09/30/17 06:21 Additional Lab and Data: Lab Results 09/29/17 09/29/17 09/29/17 Range/Units 16:48 16:48 16:48 WBC 7.4 (3.5-10.8) 10^3/ul RBC 4.16 (4.00-5.40) 10^6/ul Hgb 12.6 (12.0-16.0) g/dl Hct 37 (35-47) % MCV 88 (80-97) fL MCH 30 (27-31) pg MCHC 35 (31-36) g/dl RDW 15 (10.5-15) % Plt Count 243 (150-450) 10^3/ul MPV 7.5 (7.4-10.4) um3 Neut % (Auto) 57.4 (38-83) % Lymph % (Auto) 30.1 (25-47) % [place] % (Auto) 8.1 H (0-7) % Eos % (Auto) 2.7 (0-6) % Baso % (Auto) 1.7 (0-2) % Absolute Neuts (auto) 4.3 (1.5-7.7) 10^3/ul Absolute Lymphs (auto) 2.2 (1.0-4.8) 10^3/ul Absolute Monos (auto) 0.6 (0-0.8) 10^3/ul Absolute Eos (auto) 0.2 (0-0.6) 10^3/ul Absolute Basos (auto) 0.1 (0-0.2) 10^3/ul Absolute Nucleated RBC 0 10^3/ul Nucleated RBC % 0.1 Sodium 137 (135-145) mmol/L Potassium 4.0 (3.5-5.0) mmol/L Chloride 102 (101-111) mmol/L Carbon Dioxide 29 (22-32) mmol/L Anion Gap 6 (2-11) mmol/L BUN 11 (6-24) mg/dL Creatinine 0.78 (0.51-0.95) mg/dL Est GFR ( Amer) 100.6 (>60) Est GFR (Non-Af Amer) 83.1 (>60) BUN/Creatinine Ratio 14.1 (8-20) Glucose 95 (70-100) mg/dL Lactic Acid 0.8 (0.5-2.0) mmol/L Calcium 9.3 (8.6-10.3) mg/dL Total Bilirubin 0.30 (0.2-1.0) mg/dL AST 14 (13-39) U/L ALT 12 (7-52) U/L Alkaline Phosphatase 37 (34-104) U/L Troponin I 0.00 (<0.04) ng/mL B-Natriuretic Peptide ( - 100) pg/mL Total Protein 6.7 (6.4-8.9) g/dL Albumin 4.1 (3.2-5.2) g/dL Globulin 2.6 (2-4) g/dL Albumin/Globulin Ratio 1.6 (1-3) TSH (0.34-5.60) mcIU/mL 09/29/17 09/29/17 Range/Units 16:48 16:48 WBC (3.5-10.8) 10^3/ul RBC (4.00-5.40) 10^6/ul Hgb (12.0-16.0) g/dl Hct (35-47) % MCV (80-97) fL MCH (27-31) pg MCHC (31-36) g/dl RDW (10.5-15) % Plt Count (150-450) 10^3/ul MPV (7.4-10.4) um3 Neut % (Auto) (38-83) % Lymph % (Auto) (25-47) % [place] % (Auto) (0-7) % Eos % (Auto) (0-6) % Baso % (Auto) (0-2) % Absolute Neuts (auto) (1.5-7.7) 10^3/ul Absolute Lymphs (auto) (1.0-4.8) 10^3/ul Absolute Monos (auto) (0-0.8) 10^3/ul Absolute Eos (auto) (0-0.6) 10^3/ul Absolute Basos (auto) (0-0.2) 10^3/ul Absolute Nucleated RBC 10^3/ul Nucleated RBC % Sodium (135-145) mmol/L Potassium (3.5-5.0) mmol/L Chloride (101-111) mmol/L Carbon Dioxide (22-32) mmol/L Anion Gap (2-11) mmol/L BUN (6-24) mg/dL Creatinine (0.51-0.95) mg/dL Est GFR ( Amer) (>60) Est GFR (Non-Af Amer) (>60) BUN/Creatinine Ratio (8-20) Glucose (70-100) mg/dL Lactic Acid (0.5-2.0) mmol/L Calcium (8.6-10.3) mg/dL Total Bilirubin (0.2-1.0) mg/dL AST (13-39) U/L ALT (7-52) U/L Alkaline Phosphatase (34-104) U/L Troponin I (<0.04) ng/mL B-Natriuretic Peptide 9 ( - 100) pg/mL Total Protein (6.4-8.9) g/dL Albumin (3.2-5.2) g/dL Globulin (2-4) g/dL Albumin/Globulin Ratio (1-3) TSH 1.52 (0.34-5.60) mcIU/mL Assess/Plan/Problems-Billing Miss Ward is a 37 yo F with a 10 year history of HIV, reportedly well controlled, who presented to the ER with c/o chest pain. - Patient Problems (1) Chest pain Status: Acute Code(s): R07.9 - CHEST PAIN, UNSPECIFIED SNOMED Code(s): 18568589 Comment: ACS ruled out stress showed reversible ischemia plan for [facility] today with Dr. Perez given risk factors (2) HIV (human immunodeficiency virus infection) Status: Chronic Comment: HIV meds on hold as we do not have both in house. (3) DVT prophylaxis Status: Acute Code(s): EKM4179 - SNOMED Code(s): 212937280 Comment: ambulation (4) Full code status Status: Acute Code(s): Z78.9 - OTHER SPECIFIED HEALTH STATUS SNOMED Code(s) : 396386375 (5) Tobacco abuse Status: Chronic Priority: Medium Code(s): Z72.0 - TOBACCO USE SNOMED Code( s): 027912066
[2017-09-30] MEDS ORDERED: Diazepam TAB(*) 5 MG PO ONE (17:37)
[2017-09-30] MEDS ORDERED: Aspirin TAB* 325 MG PO ONE (17:43)
--- NOTE | 2017-10-01 00:07 | CONS ---
CC: Dr. Lydia French; Dr. Tuhsar Goodwin * CARDIOLOGY CONSULTATION: DATE OF CONSULT: 09/30/17 REASON FOR CONSULT: The patient presents with chest discomfort and now has an abnormal Lexiscan stress test, assess for further recommendations. HISTORY OF PRESENT ILLNESS: The patient is a 37-year-old female with no prior cardiac history. Specifically, she denies any history of myocardial infarction , congestive heart failure, or significant heart rhythm disturbance. She states that over the years, she has had symptoms of a sharp, stabbing sensation in her chest that has come and gone. She also has had chronic shortness of breath. Interestingly, she states some 15 years ago when she used to go to a gym and have a new product trainer with her, she eventually was unable to continue having a new product trainer because they stated her heart rate went too high when she exercised and they could no longer clear her for that. She never had any further evaluation at that time. She has a history of HIV that she felt most likely she contracted from her ex-. She reportedly has been compliant with all her viral medications. With regard to her current symptomatology, she stated that yesterday she woke up and lying in bed, she had mild shortness of breath. This was 7:30 in the morning. She also noticed mild chest heaviness at that time. She currently lives in [place] in the [employer] [facility] where she lives in a house and goes to classes in this house with other patrons. She got up, took a shower, went down for her classes. Going up and down the stairs did not necessarily make the symptoms worse. They continued, however, throughout the day and then she started having some of her sharp episodes. She eventually spoke to the nurse there, who referred her to the emergency room. She stated that the shortness of breath and the chest heaviness was continuous clearly up until 3 p.m. when she notified the nurse and most likely even when she came to the hospital. Overnight, the cardiac enzymes were completely negative with values of 0. Troponin x3. She, subsequently underwent a Lexiscan stress test basically because she did not have a shoes to do a walking stress test. With the Lexiscan , she had very subtle nondiagnostic T-wave inversions in 2, 3, aVF and V4 through 6 that were extremely transient. Her nuclear images were interrupted by Dr. Jarrett, radiologist as being abnormal with reversible ischemia to the anterior septal portion of the heart toward the apex. Her overall ejection fraction during stress was reportedly 66% and he read this as an intermediate risk from a nuclear assessment. There was no wall motion abnormalities noted. The patient's cardiac risk factors included negative history of hypertension. No history of diabetes. No history of increased cholesterol that she is aware of. She did smoke for at least 10 years half a pack a day and just stopped 4 months ago. She had a father, who had multiple MIs starting in his 30s and he of an OK in his 60s. She has abused drugs in the past. The last time she abused drugs was 4 months ago prior to starting the [employer] program in [place]. She states that she has been clean since then. The drug she used back then was cocaine. PAST MEDICAL HISTORY: Includes HIV. Also, history of anxiety and seasonal allergies. PAST SURGICAL HISTORY: Includes tubal ligation. CURRENT MEDICATIONS: 1. Benadryl for itching. 2. Dolutegravir 50 mg q.a.m. 3. Descovy 200/25 one tablet q.a.m. ALLERGIES: The patient is allergic to PENICILLIN, she develops a rash and BACTRIM, she develops a rash and a fever. REVIEW OF SYSTEMS: As per the H and P with no additional findings. PHYSICAL EXAM: When I see her now reveals a pleasant female, in no acute distress. Vital signs reveal blood pressure of 97/59 with a pulse 67, respiration 16, O2 saturation 99% on room air. Neck is supple. There is no increased JVP. Carotid has good upstroke and volume without bruits. Conjunctivae are pink, sclerae clear. Lungs reveal no accessory usage. She has good excursion. There is no active rales, rhonchi, or wheezes. Heart reveal no visible heaves, no palpable heaves or thrills. Normal S1, S2 with no S3 or S4 gallop. No significant systolic or diastolic murmur appreciated. Abdomen is soft, nontender without organomegaly. Extremities are without clubbing, cyanosis, or nancy pitting edema. Neuro: The patient is alert, oriented with normal mentation. Musculoskeletal: The patient with normal gait. Psychiatric : The patient appears to have a normal affect currently. Pulses reveal decreased pulse in the left femoral area without bruit. Right femoral pulse is present without bruit. Distal pulses are intact. DIAGNOSTIC STUDIES/LAB DATA: Laboratory results reveal a hemoglobin and hematocrit most recently of 12.4 and 36 with a platelet count of 214,000. A BUN and creatinine most recently of 12 and 0.75 with potassium of 4.0. Her total cholesterol was 132 and LDL of 80. TSH is 1.52. Troponins were negative x3. SGOT 14, SGPT 12. Lactic acid 0.8. BNP of 9. Chest x-ray revealed no acute pathology. OVERALL ASSESSMENT: Jennifer presents with what I believe to be a typical sounding chest discomfort that I do not believe is consistent with underlying coronary artery disease. Her nuclear images do show the suggestive findings of reversible ischemia to the mid to distal anterior apical and distal inferior wall. Given these findings and her prior symptomatology and her family history as well as her smoking history and drug usage, I gave her the choice of proceeding for definitive answer by cardiac catheterization or an exercise stress echo to look for supporting wall motion abnormality. At this point in time, she favors obtaining a definitive answer by cardiac catheterization. The risks and benefits were explained to her and she understood them and wished to proceed. Orders were written and we will schedule the catheterization and adjust management accordingly. [id number]/[facility] #: [id number] MTDD
[2017-10-01] MEDS ORDERED: NS 0.9% 1000 ML* 1,000 ML IV SCH (05:00)
[2017-10-01] MEDS ORDERED: Aspirin 81 mg CHEW TAB* 81 MG TAB.CHEW PO ONE (06:00)
[2017-10-01] MEDS ORDERED: Lidocaine 1%* 5 ML VIAL ONE ×2 (07:23→08:16)
[2017-10-01] MEDS ORDERED: Heparin 2 UNITS/ML IVPREMIX* 2,000 ML IV ONE (07:23)
[2017-10-01] MEDS ORDERED: Diazepam TAB(*) 5 MG PO ONE (07:30)
[2017-10-01] MEDS: Venlafaxine EXT RELEASE CAP* 75 MG PO SCH (07:35)
--- NOTE | 2017-10-01 07:44 | PN ---
Subjective Date of Service: 10/01/17 Interval History: Ms. Ward had another episode of chest pain last night when she was going to the bathroom. The pain resolved when she got back to her bed. It was in the middle of her chest and was not associated with shortness of breath, diaphoresis , or nausea. She feels okay this morning, "just sleepy." Objective Active Medications: Acetaminophen (Tylenol Tab*) 650 mg PO Q4H PRN PRN Reason: FEVER/PAIN Last Admin: 09/30/17 22:09 Dose: 650 mg Al Hydrox/Mg Hydrox/Simethicone (Maalox Plus*) 30 ml PO Q6H PRN PRN Reason: INDIGESTION Albuterol (Ventolin 2.5 Mg/3 Ml Neb.Trish*) 2.5 mg INH RT.B3CX-TIPML AWAKE PRN PRN Reason: sob/wheezing Diphenhydramine HCl (Benadryl Po*) 25 mg PO Q6H PRN PRN Reason: .CONGESTION Last Admin: 09/30/17 22:10 Dose: 25 mg Sodium Chloride (Ns 0.9% 1000 Ml*) 1,000 mls @ 125 mls/hr IV .per rate [facility] Last Admin: 10/01/17 05:35 Dose: 125 mls/hr Ibuprofen (Motrin Tab*) 400 mg PO Q6H PRN PRN Reason: PAIN/INFLAMMATION Magnesium Hydroxide (Milk Of Magntrang Liq*) 30 ml PO Q4H PRN PRN Reason: CONSTIPATION Morphine Sulfate (Morphine Inj ((Syringe))*) 2 mg IV Q4H PRN PRN Reason: PAIN - MILD Last Admin: 09/30/17 06:21 Dose: 2 mg Nicotine Polacrilex (Nicotine Gum*) 4 mg PO Q2H PRN PRN Reason: CRAVINGS Nitroglycerin (Nitroglycerin Tab 0.4 Mg*) 0.4 mg SL Q5M PRN PRN Reason: ANGINA Ondansetron HCl (Zofran Inj*) 4 mg IV Q4H PRN PRN Reason: NAUSEA/VOMITING Trazodone HCl (Desyrel Tab*) 100 mg PO BEDTIME [facility] Last Admin: 09/30/17 22:10 Dose: 100 mg Venlafaxine HCl (Effexor Xr Cap*) 150 mg PO DAILY [facility] Last Admin: 10/01/17 07:35 Dose: 150 mg Vital Signs - 8 hr 10/01/17 10/01/17 10/01/17 00:10 01:11 03:51 Temperature 98.1 F Pulse Rate 64 81 Respiratory 18 18 16 Rate Blood Pressure 97/50 84/61 (mmHg) O2 Sat by Pulse 98 96 Oximetry 10/01/17 10/01/17 04:05 07:35 Temperature Pulse Rate 70 Respiratory 18 16 Rate Blood Pressure 93/55 (mmHg) O2 Sat by Pulse 98 Oximetry Oxygen Devices in Use Now: None Appearance: alert, standing up making her bed, comfortable Eyes: No Scleral Icterus Ears/Nose/Mouth/Throat: NL Teeth, Lips, Gums Neck: NL Appearance and Movements; NL JVP Respiratory: Symmetrical Chest Expansion and Respiratory Effort, Clear to Auscultation Cardiovascular: NL Sounds; No Murmurs; No JVD, RRR Abdominal: NL Sounds; No Tenderness; No Distention Lymphatic: No Cervical Adenopathy Extremities: No Edema Skin: No Rash or Ulcers Neurological: Alert and Oriented x 3 Result Diagrams: 09/30/17 06:21 09/30/17 06:21 Additional Lab and Data: Lab Results 09/29/17 09/29/17 09/29/17 Range/Units 16:48 16:48 16:48 WBC 7.4 (3.5-10.8) 10^3/ul RBC 4.16 (4.00-5.40) 10^6/ul Hgb 12.6 (12.0-16.0) g/dl Hct 37 (35-47) % MCV 88 (80-97) fL MCH 30 (27-31) pg MCHC 35 (31-36) g/dl RDW 15 (10.5-15) % Plt Count 243 (150-450) 10^3/ul MPV 7.5 (7.4-10.4) um3 Neut % (Auto) 57.4 (38-83) % Lymph % (Auto) 30.1 (25-47) % Yates % (Auto) 8.1 H (0-7) % Eos % (Auto) 2.7 (0-6) % Baso % (Auto) 1.7 (0-2) % Absolute Neuts (auto) 4.3 (1.5-7.7) 10^3/ul Absolute Lymphs (auto) 2.2 (1.0-4.8) 10^3/ul Absolute Monos (auto) 0.6 (0-0.8) 10^3/ul Absolute Eos (auto) 0.2 (0-0.6) 10^3/ul Absolute Basos (auto) 0.1 (0-0.2) 10^3/ul Absolute Nucleated RBC 0 10^3/ul Nucleated RBC % 0.1 Sodium 137 (135-145) mmol/L Potassium 4.0 (3.5-5.0) mmol/L Chloride 102 (101-111) mmol/L Carbon Dioxide 29 (22-32) mmol/L Anion Gap 6 (2-11) mmol/L BUN 11 (6-24) mg/dL Creatinine 0.78 (0.51-0.95) mg/dL Est GFR ( Amer) 100.6 (>60) Est GFR (Non-Af Amer) 83.1 (>60) BUN/Creatinine Ratio 14.1 (8-20) Glucose 95 (70-100) mg/dL Lactic Acid 0.8 (0.5-2.0) mmol/L Calcium 9.3 (8.6-10.3) mg/dL Total Bilirubin 0.30 (0.2-1.0) mg/dL AST 14 (13-39) U/L ALT 12 (7-52) U/L Alkaline Phosphatase 37 (34-104) U/L Troponin I 0.00 (<0.04) ng/mL B-Natriuretic Peptide ( - 100) pg/mL Total Protein 6.7 (6.4-8.9) g/dL Albumin 4.1 (3.2-5.2) g/dL Globulin 2.6 (2-4) g/dL Albumin/Globulin Ratio 1.6 (1-3) TSH (0.34-5.60) mcIU/mL 09/29/17 09/29/17 Range/Units 16:48 16:48 WBC (3.5-10.8) 10^3/ul RBC (4.00-5.40) 10^6/ul Hgb (12.0-16.0) g/dl Hct (35-47) % MCV (80-97) fL MCH (27-31) pg MCHC (31-36) g/dl RDW (10.5-15) % Plt Count (150-450) 10^3/ul MPV (7.4-10.4) um3 Neut % (Auto) (38-83) % Lymph % (Auto) (25-47) % Yates % (Auto) (0-7) % Eos % (Auto) (0-6) % Baso % (Auto) (0-2) % Absolute Neuts (auto) (1.5-7.7) 10^3/ul Absolute Lymphs (auto) (1.0-4.8) 10^3/ul Absolute Monos (auto) (0-0.8) 10^3/ul Absolute Eos (auto) (0-0.6) 10^3/ul Absolute Basos (auto) (0-0.2) 10^3/ul Absolute Nucleated RBC 10^3/ul Nucleated RBC % Sodium (135-145) mmol/L Potassium (3.5-5.0) mmol/L Chloride (101-111) mmol/L Carbon Dioxide (22-32) mmol/L Anion Gap (2-11) mmol/L BUN (6-24) mg/dL Creatinine (0.51-0.95) mg/dL Est GFR ( Amer) (>60) Est GFR (Non-Af Amer) (>60) BUN/Creatinine Ratio (8-20) Glucose (70-100) mg/dL Lactic Acid (0.5-2.0) mmol/L Calcium (8.6-10.3) mg/dL Total Bilirubin (0.2-1.0) mg/dL AST (13-39) U/L ALT (7-52) U/L Alkaline Phosphatase (34-104) U/L Troponin I (<0.04) ng/mL B-Natriuretic Peptide 9 ( - 100) pg/mL Total Protein (6.4-8.9) g/dL Albumin (3.2-5.2) g/dL Globulin (2-4) g/dL Albumin/Globulin Ratio (1-3) TSH 1.52 (0.34-5.60) mcIU/mL Assess/Plan/Problems-Billing Miss Ward is a 37 yo F with a 10 year history of HIV, reportedly well controlled, who presented to the ER with c/o chest pain. - Patient Problems (1) Chest pain Current Visit: Yes Status: Acute Code(s): R07.9 - CHEST PAIN, UNSPECIFIED SNOMED Code(s): 68483169 Comment: ACS ruled out stress showed reversible ischemia plan for [facility] today with Dr. Perez given risk factors (2) Full code status Current Visit: Yes Status: Acute Code(s): Z78.9 - OTHER SPECIFIED HEALTH STATUS SNOMED Code(s): 469765813 (3) HIV (human immunodeficiency virus infection) Current Visit: Yes Status: Chronic Comment: HIV meds on hold as we do not have both in house. (4) Tobacco abuse Current Visit: No Status: Chronic Priority: Medium Code(s): Z72.0 - TOBACCO USE SNOMED Code(s): 041368922 (5) DVT prophylaxis Current Visit: Yes Status: Acute Code(s): KRL3356 - SNOMED Code(s): 299509339 Comment: ambulation
[2017-10-01] MEDS ORDERED: Iohexol 350 (CONTRAST) 200 ML MDV IV ONE (07:54)
[2017-10-01] MEDS ORDERED: Midazolam* 1 MG/ML 10 ML VIAL (10 MG) ONE (08:12)
[2017-10-01] MEDS ORDERED: nitroGLYCERIN DRIP* 25,000 MCG/250 ML BTL ONE (08:33)
[2017-10-01] MEDS ORDERED: NS 0.9% 500 ML* 500 ML IV ONE (10:23)
[2017-10-01 15:03] VITALS: BP 90/69
--- NOTE | 2017-10-01 23:02 | CATH ---
CC: Dr. Tushar Goodwin * CARDIAC CATHETERIZATION REPORT: DATE OF PROCEDURE: 10/01/17 INDICATION FOR PROCEDURE: The patient with atypical chest discomfort, abnormal reported intermediate-risk nuclear imaging with reversible ischemia to the mid- to- distal anterior and apical region on Lexiscan stress testing. The procedure was coronary arteriography, left heart catheterization, left ventriculography. The patient was interviewed and examined on the floor of the hospital where the risks and benefits were explained. She understood them and wished to proceed. PRECARDIAC CATHETERIZATION LABORATORY RESULTS: Hemoglobin, hematocrit 12.4 and 36 with a platelet count of 241,000. A BUN and creatinine of 12 and 0.7. Sodium of 138, potassium 4.0, chloride 106, bicarb 28. EQUIPMENT UTILIZED: 1. Right femoral artery sheath: A 5-German 11-cm sheath. 2. Diagnostic left coronary catheter, a 5-German FL3.5 curve catheter; diagnostic right coronary catheter included a 5-German 3.5 curve FR catheter and a 5-German RCB catheter. 3. Left heart catheterization catheter: A 5-German angled pigtail catheter. 4. Closure device utilized: A 5-German Mynx vascular closure device. MEDICATIONS GIVEN IN THE CARDIAC CATHETERIZATION LAB: The patient received 0.25 mg of Versed, intracoronary nitroglycerin boluses of 200 mcg as well as IV fluids. DESCRIPTION OF PROCEDURE: The patient was prepped and draped in sterile fashion. Right groin area was anesthetized with 1% lidocaine and right femoral artery was cannulated with an anterior wall only stick. The sheath was placed. Coronary arteriography was performed for the left coronary artery utilizing the FL3.5 curve catheter. Of note because of the angle of the catheter and some damping of the catheter sub- selective injections were initially made on the left coronary catheter. Following this, right coronary catheter was cannulated utilizing the FL3.5 curve catheter. There was transient spasm to the proximal right coronary artery , which was relieved with sublingual nitroglycerin. Left heart catheterization was performed utilizing the angled pigtail catheter advanced to the ascending aorta where central aortic pressure was recorded. It was passed across the aortic valve into the left ventricle where left ventricular pressure was recorded. Left ventriculography was performed utilizing a total of 20 cc of Omnipaque dye at a rate of 10 cc per second. The catheter was then pulled back across the aortic valve to recheck gradient. At the end of the case, the catheter and sheath were removed and hemostasis was obtained with a 5-German Mynx closure device after an injection was made into the right femoral artery sheath to assess the eligibility to utilize it. The total contrast used was 110 cc of Omnipaque dye. The radiation exposure included 12.8 minutes of fluoro time. The air kerma radiation was 988 milligray. The DAP radiation was 6009 microgray/sq. m. RESULTS: HEMODYNAMIC DATA: Left heart catheterization - central aortic pressure was recorded at 105/65 with a mean of 84. Left ventricular pressure was recorded at 96 over left ventricular end-diastolic pressure of 15. LEFT VENTRICULOGRAPHY: Performed in the PATHAK projection revealed symmetrical contraction of the left ventricle. There were no focal wall motion abnormalities. The overall ejection fraction was low normal of 50% to 55%. CORONARY ARTERIOGRAPHY: A. Left coronary artery: 1. Left main - the very ostium of the left main had minimal luminal reduction of 10%. 2. Left anterior descending artery - the left anterior descending artery supplied a mid diagonal branch followed by the continuation of the LAD toward the apical region. Of note, the caliber of the LAD in its [id number] segment was very small in caliber and it did not appear to extend well to the apical region. There were no fixed stenotic lesions noted throughout the course of this vessel. 3. Circumflex artery - a nondominant vessel supplying a very thin trifurcation marginal branch followed by a thin first obtuse marginal branch. Following this, there was a low-lying bifurcating obtuse marginal branch. No fixed disease was seen throughout the course of the vessel, although the trifurcation marginal branch and the first obtuse marginal branch were thread like in nature at its best. B. Right coronary artery - a dominant vessel supplying the PDA and posterior left ventricular branch. Of note, spasm was induced on initial cannulation of the vessel with significant reversal of the spasm with intracoronary nitroglycerin. OVERALL ASSESSMENT: Normal left ventricular contractility with reversible spasm to the proximal area of the right coronary artery with intracoronary nitroglycerin. The left anterior descending artery appeared to be a very small caliber mid-to- distal vessel most likely accounting for the perfusion abnormality noted on nuclear imaging. No fixed lesion of significance to warrant intervention. Consideration for possible usage of antispasm agents may be considered and will be discussed with the hospitalist, if a more classic presentation for coronary spasm occurred, although I do not believe coronary artery spasm is the cause of her presenting chest discomfort. Avoidance of substances prone to promote spasm is important, such as elicit drugs (cocaine), smoking, cold medications containing alpha agents, etc. She will be seen for a wound check follow up within the next week by Dr. Tom my partner. [id number]/[facility] #: [id number] EVAN
--- NOTE | 2017-10-02 01:22 | DS ---
CC: Dr. Sharan Ascencio, [facility] * DISCHARGE SUMMARY: DATE OF ADMISSION: 09/29/17 DATE OF DISCHARGE: 10/01/17 PRINCIPAL DISCHARGE DIAGNOSES: 1. Chest pain. 2. False positive stress test. SECONDARY DISCHARGE DIAGNOSES: 1. Human immunodeficiency virus. 2. Tobacco abuse. HOSPITAL COURSE BY PROBLEM: 1. Ms. Ward was admitted to the hospital with chest pain. Acute coronary syndrome was ruled out with 3 negative troponins and a nonischemic EKG; however , a stress test was obtained given a strong family history and a history of cocaine abuse. The stress test showed a small to moderate reduction in uptake at the anterior septal myocardium towards the apex and was described as intermediate risk. Dr. Perez was consulted and performed a left heart catheterization on 10/01/17. The left heart catheterization showed no obstructive coronary disease, but showed an anatomically narrow LAD, which he suspected was the cause for the positive stress test. He recommended no medical management going forward; however, should her chest pain continue, a low dose calcium channel lyle can be considered for anti-coronary vasospasm. Drug cessation was encouraged, including cigarettes. 2. HIV. Her CD4 count is unknown, but she reports it is well controlled. She is continued on dolutegravir and Descovy. DISPOSITION: Ms. Ward is being discharged to [facility] on 10/01/17. She is instructed to return to the emergency department for all symptoms included but not limited to chest pain, shortness of breath, palpitations, weakness, faintness, or any other new symptoms. She is scheduled to follow up in the [facility] within a week of discharge. TIME SPENT: Sixty minutes was spent on this discharge, 30 minutes was spent face- to-face with the patient. [id number]/[facility] #: [id number] EVAN
== END 2017-10-01 18:12 | disposition home or self-care (01) ==
LOC: ED 16:19 → MEDTELE 22:51
PROVIDERS: ADMIT Pediatrics; ATTEND Internal Medicine
DX: R07.9 Chest pain, unspecified (principal); B20 Human immunodeficiency virus [HIV] disease; Z86.59 Personal history of other mental and behavioral disorders; F17.210 Nicotine dependence, cigarettes, uncomplicated; R06.02 Shortness of breath; R51 Headache
CPT/HCPCS: 36415; 71045; 76937; 78452; 80048; 80053; 80061; 81003; 83605; 83880; 84443; 84484; 85025; 85379; 93005; 93017; 93458; 96374; 99285; A9270-GY; A9502; C1887; G0378; J0280; J1644; J2250; J2270; J2785

== ENCOUNTER 2017-11-01 21:30 | Emergency (ER) | payer OTHER ==
--- OUTSIDE RECORDS SUMMARY | 2017-11-01 21:40 | XMS REPORT ---
:1980 External Reference #:[id number] Author Organization [facility] Address [address] [place] [address] Phone [phone] Care Team Providers Name Role Phone Yajaira Summers MD Primary Care Physician Unavailable Payers Type Date Identification Numbers Payment Provider Subscriber Commercial Policy Number: [id number] Guilherme Ward Group Number: [id number] [address] PayID: [id number] [place] [address] Commercial Expires: 2017 Policy Number: [employer] Jennifer Ward [id number] Medicaid PayID: [id number] [address] [address] [place] [address] Problems Date Description Provider Status Onset: 10/07/2017 Chest pain Ingrid Tom MD, Active [facility] Onset: 09/30/2017 Tobacco user Lydia French D.O. Active Onset: 09/29/2017 Human immunodeficiency virus BRENNAN Ramirez Active infection Onset: 09/29/2017 Anxiety state BRENNAN Ramirez Active Social History Type Date Description Comments Marital Status Lives With Cigarette Use Former Cigarette Smoker 1/2 Pack Daily ETOH Use Denies alcohol use Smoking Patient is a former smoker quit June 2017 Recreational Drug Use Denies Drug Use Daily Caffeine Consumes on average 1 cup of regular coffee per day Exercise Type/Frequency Exercises regularly gym every other day Allergies, Adverse Reactions, Alerts Date Description Reaction Status Severity Comments 10/07/2017 Zithromax rash in mouth active 10/07/2017 Bactrim active 10/07/2017 Penicillin active Medications Medication Date Status Form Strength Qnty SIG Indications Ordering Provider Trazodone HCL Active Tablets 100mg 1 tablet Unknown 000 at bedtime as needed Effexor XR Active Caps ER 150mg 1 by mouth Unknown 000 24HR every day (takes with 37.5 mg tablet) Effexor XR 0 Active Caps ER 37.5mg 1 by mouth Unknown 000 24HR every day Descovy 0 Active Tablets 200-25mg 1 by mouth Unknown 000 every day Tivicay 0 Active Tablets 50mg 1 by mouth Unknown 000 every day Vital Signs Date Vital Result Comment 10/07/2017 Height 60 inches 5'0" Weight 174.00 lb w/ shoes Heart Rate 100 /min BP Systolic Sitting 104 mmHg lue lg cuff BP Diastolic Sitting 74 mmHg lue lg cuff BP Systolic Standing 108 mmHg lue lg cuff BP Diastolic Standing 74 mmHg lue lg cuff Respiratory Rate 18 /min BMI (Body Mass Index) 34.0 kg/m2 Results Description No Information Procedures Date CPT Code Description Status 10/07/2017 14194 EKG Tracing & Interpretation Completed 10/01/2017 83088 Left Heart Cath. Incl S/I Coronaries, Angio S/I V Gram Completed If Done 09/30/2017 93042 Treadmill Interp/Report Only Completed 09/30/2017 25350 Stress Test Supervsn W/Out I/R Completed Encounters Type Date Location Provider CPT E/M Dx Office Visit 09/30/2017 [facility] Perez M.D., 23686 R07.9 11:45a [facility] R94.39 Plan of Care Future Appointment(s):10/20/2017 2:00 pm - Martir Nath M.D. at [facility] - [address]/07/2017 - Ingrid Tom MD, [facility], [id number] Chest pain, unspecifiedFollow up:With her supervising physician at [facility]. She apparently also has a appointment later this month to establish primary care with at [facility].R06.02 Shortness of breath
--- OUTSIDE RECORDS SUMMARY | 2017-11-01 21:40 | XMS REPORT ---
:1980 External Reference #:[id number] Author Organization [facility] Address [address] [place] [address] Phone [phone] Care Team Providers Name Role Phone Yajaira Summers MD Primary Care Physician Unavailable Payers Type Date Identification Numbers Payment Provider Subscriber Commercial Policy Number: [id number] Guilherme Ward Group Number: [id number] [address] PayID: [id number] [place] [address] Commercial Expires: 2017 Policy Number: [employer] Jennifer Ward [id number] Medicaid PayID: [id number] [address] [address] [place] [address] Problems Date Description Provider Status Onset: 10/07/2017 Chest pain Ingrid Tom MD, Active [facility], FSCAI Onset: 09/30/2017 Tobacco user Lydia French [...] Procedures Date CPT Code Description Status 10/07/2017 15355 EKG Tracing & Interpretation Completed 10/01/2017 21209 Left Heart Cath. Incl S/I Coronaries, Angio S/I V Gram Completed If Done 09/30/2017 91418 Treadmill Interp/Report Only Completed 09/30/2017 52703 Stress Test Supervsn W/Out I/R Completed Encounters Type Date Location Provider CPT E/M Dx Office Visit 09/30/2017 [facility] Sylvester Perez M.D., [address] R07.9 11:45a [facility] AT [facility] FAC, FSCAI R94.39 Plan of Care Future Appointment(s):10/20/2017 2:00 pm - Martir Nath M.D. at [facility] Internal Medicine - [address]/07/2017 - [facility] [id number] Chest pain, yqemhrtexksJ34.02 Shortness of breath
--- OUTSIDE RECORDS SUMMARY | 2017-11-01 21:40 | XMS REPORT ---
:1980 External Reference #:[id number] Author Organization [facility] Address [address] [place] [address] Phone [phone] Care Team Providers Name Role Phone Martir Nath MD Primary Care Physician Unavailable Payers Type Date Identification Numbers Payment Provider Subscriber Commercial Policy Number: [id number] Guilherme Ward Group Number: [id number] [address] PayID: [id number] [place] [address] Commercial Expires: 2017 Policy Number: [employer] Jennifer Ward [id number] Medicaid PayID: [id number] [address] [address] [place] [address] Problems Date Description Provider Status Onset: 10/20/2017 Chronic obstructive lung disease Martir Nath M.D. Active Onset: 10/20/2017 Insomnia Martir Nath M.D. Active Onset: 10/20/2017 Mild recurrent major depression Martir Nath M.D. Active Onset: 10/07/2017 Chest pain Ingrid Tom MD, Active [facility] Onset: 09/30/2017 Tobacco user Lydia French D.O. [...] (takes with 37.5 mg tablet) Effexor XR Active Caps ER 37.5mg 1 by mouth Unknown 000 24HR every day Descovy Active Tablets 200-25mg 1 by mouth Unknown 000 every day Tivicay 0 Active Tablets 50mg 1 by mouth Unknown 000 every day Benadryl Active Tablets 25mg take one Unknown Allergy 000 tablet every 6 hours as needed for itch/ rash Vital Signs Date Vital Result Comment 10/20/2017 Height 60 inches 5'0" Weight 171.00 lb Heart Rate 101 /min BP Systolic Sitting 118 mmHg BP Diastolic Sitting 72 mmHg Body Temperature 98.9 F O2 % BldC Oximetry 96 % BMI (Body Mass Index) 33.4 kg/m2 10/07/2017 Height 60 inches 5'0" Weight 174.00 [...] Procedures Date CPT Code Description Status 10/07/2017 68436 EKG Tracing & Interpretation Completed 10/01/2017 73635 Left Heart Cath. Incl S/I Coronaries, Angio S/I V Gram Completed If Done 09/30/2017 27605 Treadmill Interp/Report Only Completed 09/30/2017 62372 Stress Test Supervsn W/Out I/R Completed Encounters Type Date Location Provider CPT E/M Dx Office Visit 10/07/2017 [facility] Ingrid Tom, [address] R07.9 3:40p High Risk Ob AT [facility] MD, FACC, FSCAI R06.02 Office Visit 10/01/2017 2:41p [facility] Reena Mendes, [address] R07.9 Hospitalists B20 F17.210 Office Visit 09/30/2017 11:45a [facility] Sylvester Perez M.D., [address]352 R07.9 [facility] AT [facility]AC, FSCAI R94.39 [facility] Visit 09/29/2017 [facility] [address] R07.9 [facility] Hospitalists F41.9 B20 Plan of Care Future Appointment(s):11/20/2017 10:00 am - Martir Nath M.D. at [facility] Internal Medicine - [address]/20/2017 - Martir Nath M.D.F33.0 Major depressive disorder, recurrent, mildComments:Symptoms stable. Continue hgfnckiZ40.00 Insomnia, unspecifiedComments:You can get rebound insomnia from nightly medications. You should also make efforts to wean off medication in between. Avoid coffee, tea, and other foods that have caffeine, alcohol and smoking, in the late afternoon, evening, and bedtime. Avoid watching TV an hour before you go to bed.You can try over the counter melatonin at bed time.one glass of warn milk and and warm shower before sleep may help to sleep better.Continue Trazadone.Z13.220 Encounter for screening for lipoid hvespgxveR57.9 Chronic obstructive pulmonary disease, unspecifiedFollow up:1 month/To review labs and PFTsZ00.01 Encounter for general adult medical exam w abnormal findingsComments:You should have yearly Flu shot and T dap every 10 years. Exercise 30mts/day 5 times a week,Use sun screen, to prevent skin cancer discussed.Self breast exam once a month to feel for lumps or [id number] Human immunodeficiency virus [HIV] disease
[2017-11-01] MEDS ORDERED: Cephalexin CAP* 500 MG PO ONE ×2 (21:56→22:01)
[2017-11-01] MEDS ORDERED: Hydrocortisone 1% CREAM* 30 GM TUBE TOPICAL ONE (21:57)
--- NOTE | 2017-11-01 22:00 | ED ---
Skin Complaint - HPI Summary HPI Summary: 37-year-old presents with a bug bite to right foot. She got bit twice on her right foot. She is not sure what bite here. She noticed them this morning. She states the area itches. She admits to spreading redness. No fevers. she took some Benadryl without relief. She states that other people at cars have similar bug bites. She denies any chest or shortness breath. No abdominal pain. No nausea or vomiting. No sore throat or difficulty swallowing. - History of Current Complaint Chief Complaint: EDRashSkinAbscess Time Seen by Provider: 11/01/17 21:42 Stated Complaint: BUG BITE Hx Last Menstrual Period: 07/31/17 Pain Intensity: 4 - Additional Pertinent History Primary Care Physician: MARIO - Allergy/Home Medications Allergies/Adverse Reactions: Allergies Allergy/AdvReac Type Severity Reaction Status Date / Time Penicillins Allergy Rash Verified 11/01/17 21:53 sulfamethoxazole Allergy Rash Verified 11/01/17 21:53 [From Bactrim] trimethoprim [From Bactrim] Allergy Rash Verified 11/01/17 21:53 PMH/Surg Hx/FS Hx/Imm Hx Endocrine/Hematology History: Denies: Hx Blood Disorders, Hx Diabetes, Hx Thyroid Disease, Hx Anemia Cardiovascular History: Reports: Hx Angina Denies: Hx Congestive Heart Failure, Hx Coronary Artery Disease, Hx Hypercholesterolemia, Hx Hypertension, Hx Myocardial Infarction, Hx Valvular Heart Disease, Other Cardiovascular Problems/Disorders Respiratory History: Reports: Other Respiratory Problems/Disorders - smokes 1/2 pack a day Denies: Hx Asthma, Hx Chronic Obstructive Pulmonary Disease (COPD) GI History: Denies: Hx Gastroesophageal Reflux Disease, Hx Jaundice, Hx Ulcer History: Denies: Hx Renal Disease Sensory History: Reports: Hx Contacts or Glasses Denies: Hx Hearing Aid Opthamlomology History: Reports: Hx Contacts or Glasses Psychiatric History: Reports: Hx Anxiety, Hx Depression, Hx Panic Disorder - "panic attacks" - Surgical History Surgery Procedure, Year, and Place: TUBAL LIGATION. 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 Smoking Status (MU): Former Smoker Type: Cigarettes Amount Used/How Often: 1/2 ppd Length of Time of Smoking/Using Tobacco: 6 years Have You Smoked in the Last Year: Yes Review of Systems Negative: Fever Negative: Chest Pain Negative: Shortness Of Breath Positive: Other - bug bite right foot All Other Systems Reviewed And Are Negative: Yes Physical Exam Triage Information Reviewed: Yes Vital Signs On Initial Exam: Initial Vitals Temp Pulse Resp BP Pulse Ox 97.5 F 72 20 103/67 99 11/01/17 21:31 11/01/17 21:31 11/01/17 21:31 11/01/17 21:31 11/01/17 21:31 Vital Signs Reviewed: Yes Appearance: Positive: Well-Appearing Skin: Positive: Warm, Dry, Other - erythema around two bites on right foot with minimial warmth, no streaking Head/Face: Positive: Normal Head/Face Inspection Eyes: Positive: Normal, Conjunctiva Clear ENT: Positive: Pharynx normal Respiratory/Lung Sounds: Positive: Clear to Auscultation, Breath Sounds Present Cardiovascular: Positive: Normal, RRR Musculoskeletal: Positive: Strength/ROM Intact - right foot, Other - good pulses Neurological: Positive: Normal Psychiatric: Positive: Normal Diagnostics - Vital Signs Vital Signs Temp Pulse Resp BP Pulse Ox 11/01/17 21:31 97.5 F 72 20 103/67 99 - Laboratory Lab Statement: Any lab studies that have been ordered have been reviewed, and results considered in the medical decision making process. Course/Dx - Course Course Of Treatment: 37-year-old presents with a bug bite to right foot. She got bit twice on her right foot. She is not sure what bite here. She noticed them this morning. She states the area itches. She admits to spreading redness. No fevers. she took some Benadryl without relief. She states that other people at cars have similar bug bites. She denies any chest or shortness breath. No abdominal pain. No nausea or vomiting. No sore throat or difficulty swallowing. On exam has bug bites present is on the right foot. Has surrounding erythema with minimal warmness. likely just reaction to bug bite but will treat as potential early cellulitis with keflex. patient has taken Keflex before. Patient understands and agrees with plan. - Differential Diagnoses - Skin Complaint Differential Diagnoses: Abscess, Cellulitis, Contact Dermatitis, Local Allergic Reaction - Diagnoses Provider Diagnoses: Bug bite Discharge - Sign-Out/Discharge Documenting (check all that apply): Patient Departure - Discharge Plan Condition: Good Disposition: HOME Prescriptions: Cephalexin CAP* [Keflex CAP*] 500 mg PO BID #12 cap Patient Education Materials: Insect Bite or Sting (ED) Referrals: Elmer Steele MD [Primary Care Provider] - Additional Instructions: will treat as potential early cellulitis with Keflex twice a day for 7 days Take Benadryl every 6 hours for itching apply hydrocortisone to area twice a day apply ice, elevate Return to ED if develop fever or any new or worsening symptoms - Billing Disposition and Condition Condition: GOOD Disposition: Home
[2017-11-01 22:18] VITALS: BP 101/68
== END 2017-11-01 22:17 | disposition home or self-care (01) ==
LOC: ED 21:30
DX: R10.84 Generalized abdominal pain (principal); R19.7 Diarrhea, unspecified
CPT/HCPCS: 96374; 96375; 99283; A9270-GY

== ENCOUNTER 2018-07-15 15:21 | Emergency (ER) | payer OTHER ==
[2018-07-15 15:59] VITALS: BP 104/72
--- NOTE | 2018-07-15 16:53 | UC ---
Lower Extremity/Ankle HPI - HPI Summary HPI Summary: gradually worsening pain with weight bearing x 2 weeks, without history of injury. 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 - History of Current Complaint Chief Complaint: UCLowerExtremity Stated Complaint: R FOOT INJURY Time Seen by Provider: 07/15/18 16:44 Hx Obtained From: Patient Hx Last Menstrual Period: [id number] Onset/Duration: Gradual Onset, Lasting Weeks - 2 Severity Initially: Mild Severity Currently: Moderate Pain Intensity: 8 Aggravating Factor(s): Standing, Ambulation Alleviating Factor(s): Rest - Risk Factors Gout Risk Factors: Age Over 40 DVT Risk Factors: Smoking Septic Arthritis Risk Factor: Negative - Allergies/Home Medications Allergies/Adverse Reactions: Allergies Allergy/AdvReac Type Severity Reaction Status Date / Time Penicillins Allergy Rash Verified 07/15/18 15:37 sulfamethoxazole Allergy Rash Verified 07/15/18 15:37 [From Bactrim] trimethoprim [From Bactrim] Allergy Rash Verified 07/15/18 15:37 PMH/Surg Hx/FS Hx/Imm Hx - Additional Past Medical History Additional PMH: took antiviral prophylaxis x 2 years when she had an HIV infected partner Psychological History: Anxiety - Surgical History Surgical History: Yes Surgery Procedure, Year, and Place: TUBAL LIGATION. 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 Skin: Positive: Negative Eyes: Positive: Negative ENT: Positive: Negative Respiratory: Positive: Negative Cardiovascular: Positive: Negative Gastrointestinal: Positive: Negative Genitourinary: Positive: Negative Motor: Positive: Negative Neurovascular: Positive: Negative Musculoskeletal: Positive: Arthralgia Neurological: Positive: Negative Psychological: Positive: Negative Physical Exam Triage Information Reviewed: Yes Appearance: Ill-Appearing - looks chronically unwell, Obese Vital Signs: Initial Vital Signs Temp 98.4 F 07/15/18 15:30 Pulse 115 07/15/18 15:30 Resp 18 07/15/18 15:30 BP 176/153 07/15/18 15:30 Pulse Ox 98 07/15/18 15:30 ENT: Positive: Normal ENT inspection Dental Exam: Normal Neck exam: Normal Respiratory: Positive: Lungs clear, Normal breath sounds Cardiovascular: Positive: RRR, No Murmur Musculoskeletal Exam: Other - no erythema or swelling of the right foot and ankle, no warmth. Musculoskeletal: Positive: Strength Intact, ROM Intact - full rom in right ankle when not weight bearing, No Edema Neurological: Positive: Alert, Muscle Tone Normal Skin Exam: Normal Diagnostics - Radiology No standard instances Radiology Interpretation Completed By: Radiologist Summary of Radiographic Findings: No acute bony injury, normal ankle. Lower Extremity Course/Dx - Course Course Of Treatment: foot support, PT, refer for eval and treatment of hyperpronation. - Differential Dx/Diagnosis Differential Diagnosis/HQI/PQRI: Bursitis, Contusion, Sprain, Strain Provider Diagnosis: Foot pain, right Discharge - Sign-Out/Discharge Documenting (check all that apply): Patient Departure All imaging exams completed and their final reports reviewed: Yes - Discharge Plan Condition: Good Disposition: HOME Patient Education Materials: Foot Sprain (ED) Forms: *Work Release Referrals: Martir Nath MD [Primary Care Provider] - Jamie Knox MD [Medical Doctor] - Additional Instructions: HIV test was ordered and will be available tomorrow You can use the SONJA wrap for support, or you can try using a gel heel cup in the shoe. These are available at sports shoe stores. Off work x 2 days. I suggest PT for foot and ankle strengthening. You have a referral to orthopedics. - Billing Disposition and Condition Condition: GOOD Disposition: Home
--- NOTE | 2018-07-17 10:46 | UC ---
- Progress Note Progress Note: Progress note: HIV 1 and 2 antibodies ordered on this patient on 07/16/18. Result at this time is nonreactive. The specimen was sent for confirmation testing. MDM: No change in treatment at this time. Dr. Martir Nath will receive these results. Alfredo Curran MD Course/Dx - Diagnoses Provider Diagnoses: Foot pain, right Discharge - Sign-Out/Discharge Documenting (check all that apply): Post-Discharge Follow Up All imaging exams completed and their final reports reviewed: Yes - Discharge Plan Condition: Good Disposition: HOME Patient Education Materials: Foot Sprain (ED) Forms: *Work Release Referrals: Jamie Knox MD [Medical Doctor] - Martir Nath MD [Primary Care Provider] - Additional Instructions: HIV test was ordered and will be available tomorrow You can use the SONJA wrap for support, or you can try using a gel heel cup in the shoe. These are available at sports shoe stores. Off work x 2 days. I suggest PT for foot and ankle strengthening. You have a referral to orthopedics. - Billing Disposition and Condition Condition: GOOD Disposition: Home
[2018-07-19 15:58] LABS: HIV-1 Ab Differentiation,P Positive (Negative); HIV-2 Ab Differentiation,P Indeterminate (Negative)
== END 2018-07-15 17:50 | disposition home or self-care (01) ==
LOC: UCEAST 15:21
DX: M79.671 Pain in right foot (principal); Z88.0 Allergy status to penicillin; Z88.2 Allergy status to sulfonamides; F17.210 Nicotine dependence, cigarettes, uncomplicated
CPT/HCPCS: 36415; 86701; 86702; 86703; 99212; G0463

== ENCOUNTER 2018-11-29 14:40 | Emergency (ER) | payer OTHER ==
[2018-11-29 15:16] VITALS: BP 129/83
--- NOTE | 2018-11-29 15:23 | UC ---
Minor Trauma HPI - HPI Summary HPI Summary: Patient is a 38yo female presenting with left sided rib pain and lumbar pain x2 days after she fell down a flight of 20 or so stairs while bringing in groceries. Denies hitting her head. Denies neck pain. Notes bruising and a "crunching" feeling in her left side. She states she is in severe pain and it is worse with breathing and coughing. Denies any numbness or tingling. Denies decreased ROM or weakness. Denies changes in BMs or urination. Denies incontinence of stool or urine. Notes no alleviating factors. She has taken 20 ibuprofen over the past without relief. - History of Current Complaint Chief Complaint: UCTrauma Stated Complaint: RIB PAIN FROM FALL Hx Obtained From: Patient Hx Last Menstrual Period: [id number] Onset/Duration: Sudden Onset, Lasting Days Severity Currently: Severe Pain Intensity: 9 Pain Scale Used: 0-10 Numeric Aggravating Factor(s): Ambulation, Coughing, Deep Breaths, Movement Alleviating Factor(s): Nothing - Allergies/Home Medications Allergies/Adverse Reactions: Allergies Allergy/AdvReac Type Severity Reaction Status Date / Time Penicillins Allergy Rash Verified 11/29/18 15:16 sulfamethoxazole Allergy Rash Verified 11/29/18 15:16 [From Bactrim] trimethoprim [From Bactrim] Allergy Rash Verified 11/29/18 15:16 PMH/Surg Hx/FS Hx/Imm Hx - Surgical History Surgical History: Yes Surgery Procedure, Year, and Place: TUBAL LIGATION. 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 Negative: Cough Cardiovascular: Negative: Palpitations Gastrointestinal: Positive: Negative. Negative: Abdominal Pain, Vomiting, Diarrhea, Nausea Genitourinary: Positive: Negative Musculoskeletal: Positive: Arthralgia - left rib pain and lumbar pain Neurological: Negative: Paresthesia, Numbness Psychological: Positive: Anxious Physical Exam Triage Information Reviewed: Yes Appearance: Well-Nourished, Pain Distress, Obese Vital Signs: Initial Vital Signs Temp 98.4 F 11/29/18 15:12 Pulse 94 11/29/18 15:12 Resp 18 11/29/18 15:12 BP 129/83 11/29/18 15:12 Pulse Ox 99 11/29/18 15:12 Vital Signs Reviewed: Yes Eyes: Positive: Conjunctiva Clear ENT: Positive: Hearing grossly normal Neck exam: Normal Neck: Positive: Supple Respiratory: Positive: Lungs clear, Normal breath sounds, No respiratory distress, No accessory muscle use. Negative: Crackles, Rhonchi, Stridor, Wheezing Cardiovascular Exam: Normal Cardiovascular: Positive: RRR Musculoskeletal Exam: Normal Musculoskeletal: Positive: Strength Intact, ROM Intact, No Edema, Other: - tenderness to palpation over lt ribs, right middle back, and lumbar spine Neurological: Positive: Alert Psychological: Positive: Consolable, Other: - patient is anxious and crying Skin: Positive: Other - ecchymosis noted over left later ribs and right middle back Diagnostics - Radiology lt chest xray Radiology Interpretation Completed By: Radiologist Summary of Radiographic Findings: IMPRESSION: LEFT NINTH RIB FRACTURE. NO APPRECIABLE PNEUMOTHORAX. lumbar spine xray Radiology Interpretation Completed By: Radiologist Summary of Radiographic Findings: IMPRESSION: UNREMARKABLE RADIOGRAPHS OF THE LUMBAR SPINE. Minor Trauma Course/Dx - Course Course Of Treatment: Discussed fractured rib with patient. Instructed to use lidocaine patches over the counter (Salonpas) or the lidocaine gel as prescribed. Told her she may continue to use over the counter pain medications as directed for pain relief. I stressed the importance of taking deep breaths and coughing often. Instructed patient to use the incentive spirometer 10 times every hour and to splint by holding a pillow to chest to decrease pain. Instructed to follow up with PCP if symptoms persist or to go to the emergency department if they experience worsening pain, difficulty breathing, fever, or they cough up blood. - Differential Dx/Diagnosis Provider Diagnosis: Fractured rib Discharge ED - Sign-Out/Discharge Documenting (check all that apply): Patient Departure All imaging exams completed and their final reports reviewed: Yes - Discharge Plan Condition: Stable Disposition: HOME Prescriptions: Lidocaine 4% GEL* [Topicaine 4% GEL*] 1 applic TOPICAL SEE INSTRUCTIONS PRN #1 tube PRN Reason: Pain - Moderate Patient Education Materials: Rib Fracture (ED) Referrals: Martir Nath MD [Primary Care Provider] - If Needed Additional Instructions: As discussed, your xrays did show a rib fracture. You may use lidocaine patches over the counter (Salonpas) or the lidocaine gel as prescribed for relief of your rib and back pain. You may continue to use over the counter pain medications as directed for pain relief. It is very important that you take deep breaths often and cough if you need to. This will help prevent pneumonia from occurring. Use the incentive spirometer 10 times every hour. You should brace yourself by holding a pillow to your chest when doing this to decrease pain. If symptoms persist, follow up with your primary care physician. Go to the emergency department if you experience worsening pain, difficulty breathing, fever, or you cough up blood. - Billing Disposition and Condition Condition: STABLE Disposition: Home
== END 2018-11-29 16:38 | disposition home or self-care (01) ==
LOC: UCEAST 14:40
DX: S22.32XA Fracture of one rib, left side, initial encounter for closed fracture (principal); E66.9 Obesity, unspecified; F17.210 Nicotine dependence, cigarettes, uncomplicated; Z88.0 Allergy status to penicillin; Z88.2 Allergy status to sulfonamides; W19.XXXA Unspecified fall, initial encounter; Y92.9 Unspecified place or not applicable
CPT/HCPCS: 72100; 99211; G0463